=== PATIENT | female | born 1990 | race Two or more races ===

== ENCOUNTER 2017-04-06 20:32 | Emergency (ER) | payer OTHER ==
[~2017-04-06] VITALS: Ht 160 cm; Wt 84.0 kg
[2017-04-06 20:38] VITALS: Ht 160 cm; Wt 84.0 kg
[2017-04-06] MEDS ORDERED: IBUPROFEN 600 MG TAB PO ONE (21:00)
--- NOTE | 2017-04-06 21:02 | ERD ---
ER Documentation Chief Complaint Date/Time DATE: 04/06/17 TIME: 20:57 Chief Complaint cough and congestion x 1 week HPI This is a 27-year-old female presenting to emergency department with cough and chest congestion 1 week. Patient states cough is productive with yellow sputum. Patient denies fevers or chills at home. Patient states she does have some chest pain while coughing. Patient states she has some nausea at times with severe coughing. No vomiting. No abdominal pain. No dysuria. No sore throat or difficulty swallowing. Patient did not take any medications at home for this. ROS All systems reviewed and are negative except as per history of present illness. Medications Home Meds Active Scripts Guaifenesin/Codeine Phosphate (CHERATUSSIN AC SYRUP) 118 Ml Liquid, 5 ML PO Q4H Y for COUGH, #118 ML Prov:ALEJANDRO RAWLS NP 04/06/17 Allergies Allergies: Coded Allergies: No Known Allergy (Unverified , 04/06/17) PMhx/Soc Medical and Surgical Hx: pt denies Medical Hx, pt denies Surgical Hx History of Surgery: No Anesthesia Reaction: No Hx Neurological Disorder: No Hx Respiratory Disorders: No Hx Cardiac Disorders: No Hx Psychiatric Problems: No Hx Miscellaneous Medical Probl: No Hx Alcohol Use: No Hx Substance Use: No Hx Tobacco Use: No Smoking Status: Never smoker Physical Exam Vitals Physical Exam Const: No acute distress, alert Head: Atraumatic Eyes: Normal Conjunctiva ENT: Normal External Ears, Nose and Mouth. No erythema or exudate posterior pharynx. No peritonsillar abscess. TMs normal bilaterally. Neck: Full range of motion..~ No meningismus. Resp: Clear to auscultation bilaterally. No wheezing, rhonchi or crackles. No stridor or labored breathing. Patient is talking in complete sentences. Cardio: Regular rate and rhythm, no murmurs Abd: Soft, non tender, non distended. Normal bowel sounds Skin: No petechiae or rashes Back: No midline or flank tenderness Ext: No cyanosis, or edema Neur: Awake and alert Psych: Normal Mood and Affect Results 24 hrs Current Medications Medications (Trade) Dose Ordered Sig/Quin Route PRN Reason Start Time Stop Time Status Last Admin Dose Admin Ibuprofen (Motrin) 600 mg ONCE ONCE PO 04/06/17 21:00 04/06/17 21:01 DC 04/06/17 21:17 Procedures/MDM [place] [id number] Radiology Main Line: [phone] DIAGNOSTIC IMAGING REPORT Patient: EUN RICHTER : 1990 Age: 27 Sex: F MR #: [id number] DOS: 04/06/172053 Ordering MD: ALEJANDRO RAWLS NP Location: [facility] Room/Bed: PROCEDURE: XR Chest. CLINICAL INDICATION: Cough TECHNIQUE: AP Portable chest. COMPARISON: No pertinent prior examinations were submitted for comparison. FINDINGS: The cardiomediastinal silhouette is normal. The lungs are clear. The osseous structures are unremarkable. IMPRESSION: No acute findings. MDM: This is a 27-year-old female presenting to emergency department with cough and chest congestion 1 week. Patient is afebrile upon arrival to ED. Vital signs are stable. Patient has productive cough with yellow sputum. Patient states she does have some chest pain while coughing. Chest pain is reproducible with palpation and low suspicion for acute AK and N-STEMI. Patient given ibuprofen 600 mg p.o. Chest x-ray reviewed by radiologist as no acute findings. Low suspicion for pneumonia, pleural effusion, pneumothorax or acute AK. Differential diagnosis includes but not limited to URI, influenza, otitis media , otitis externa, asthma exacerbation, croup, bronchitis, bronchiolitis and costochondritis. Patient is appropriate for outpatient management and will be given prescription for Cheratussin AC syrup. Instructed patient to follow-up with primary care provider in the next 2-3 days for reassessment and additional management. Return to ED for any high fever, chest pain, difficulty breathing, shortness breath, wheezing, vomiting, diarrhea, abdominal pain or any new or worsening symptoms. Patient verbalizes understanding. All questions answered at discharge. Departure Diagnosis: Primary Impression: URI (upper respiratory infection) URI type: unspecified viral URI Qualified Code: J06.9 - Viral upper respiratory tract infection Condition: Stable ALEJANDRO RAWLS NP Apr 06, 2017 21:02
--- NOTE | 2017-04-06 22:09 | RADRPT ---
PROCEDURE: XR Chest. CLINICAL INDICATION: Cough TECHNIQUE: AP Portable chest. COMPARISON: No pertinent prior examinations were submitted for comparison. FINDINGS: The cardiomediastinal silhouette is normal. The lungs are clear. The osseous structures are unrema rkable. IMPRESSION: No acute findings. RPTAT: HIKT .Cale Gaspar MD, MD Date Time Electronically viewed and signed by .Cale Gaspar MD, on 04/06/2017 22:09 .T/
[2017-04-06] MEDS ORDERED: GUAI118L22 PO (23:03)
== END 2017-04-06 23:15 | disposition home or self-care (01) ==
LOC: FTE 20:32
DX: J06.9 Acute upper respiratory infection, unspecified (principal)
CPT/HCPCS: 71010; Z7502; Z7610

== ENCOUNTER 2017-07-11 11:22 | Emergency (ER) | payer OTHER ==
[~2017-07-11] VITALS: Wt 84.0 kg
[~2017-07-11 11:22] MED LIST: GUAI118L22 PO
[2017-07-11] MEDS ORDERED: PRED20TA PO (13:20)
[2017-07-11] MEDS ORDERED: predniSONE 20 MG TAB PO ONE (13:30)
--- NOTE | 2017-07-11 17:12 | ERD ---
ER Documentation Chief Complaint Chief Complaint R LEG NUMBNESS X 8 DAYS HPI Patient is a 27-year-old female with a history of multiple sclerosis who presents to the ED with right leg numbness and tingling 7 days. Patient states that her job requires her to stand on her feet all day over 8 hours. Pain came on suddenly Friday when she came home from work. She states that it starts at her hips and radiates down to her right toes. She is able to walk. She has mild weakness. Denies bowel or bladder incontinence. Denies trauma or falls. States that she had a neurologist last year and was getting injections weekly however she had a change in insurance and has not seen a neurologist this year. Has an appointment with the neurologist in August. She has not taken any medication for her symptoms. Denies abdominal pain, nausea, vomiting or diarrhea. Denies headache or dizziness. Denies blurry vision or diplopia. No other complaints. ROS All systems reviewed and are negative except as per history of present illness. Medications Home Meds Active Scripts Prednisone* (Prednisone*) 20 Mg Tab, 60 MG PO DAILY for 4 Days, TAB Prov:JACQUI HOWELL PA-C 07/11/17 Guaifenesin/Codeine Phosphate (CHERATUSSIN AC SYRUP) 118 Ml Liquid, 5 ML PO Q4H Y for COUGH, #118 ML Prov:ALEJANDRO RAWLS NP 04/06/17 Allergies Allergies: Coded Allergies: No Known Allergy (Unverified , 04/06/17) PMhx/Soc History of Surgery: No Anesthesia Reaction: No Hx Neurological Disorder: No Hx Respiratory Disorders: No Hx Cardiac Disorders: No Hx Psychiatric Problems: No Hx Miscellaneous Medical Probl: No Hx Alcohol Use: No Hx Substance Use: No Hx Tobacco Use: No Physical Exam Vitals Vital Signs Date Time Temp Pulse Resp B/P Pulse Ox O2 Delivery O2 Flow Rate FiO2 07/11/17 13:35 98 Room Air 07/11/17 11:25 98.0 107 18 142/87 99 Physical Exam GENERAL: Well-developed, well-nourished female. Appears in no acute distress. HEAD: Normocephalic, atraumatic. EYES: Pupils are equally reactive bilaterally. EOMs grossly intact. No conjunctival erythema. ENT: Moist mucous membranes. No uvula deviation. No kissing tonsils. No exudates. NECK: Supple. No lymphadenopathy or thyromegaly. No meningismus. negative kernig. negative brudinski. LUNG: Clear to auscultation bilaterally. No rhonchi, wheezing, rales or coarse breath sounds. HEART: Regular rate and rhythm. No murmurs, rubs or gallops. Extremities: Equal pulses bilaterally. No peripheral clubbing, cyanosis or edema. No unilateral leg swelling. NEUROLOGIC: Alert and oriented. Moving all four extremities. diminished strength on right > left Normal speech. Steady gait. good pulses. SKIN: Normal color. Warm and dry. No rashes or lesions. Capillary refill < 2 seconds Results 24 hrs Current Medications Medications (Trade) Dose Ordered Sig/Quin Route PRN Reason Start Time Stop Time Status Last Admin Dose Admin Prednisone (Prednisone) 60 mg ONCE ONCE PO 07/11/17 13:30 07/11/17 13:31 DC 07/11/17 13:27 Procedures/MDM ER COURSE: I kept the patient and/or family informed of laboratory and diagnostic imaging results throughout the emergency room course. MEDICAL DECISION MAKING: This is a 27-year-old female who presents with left leg weakness, numbness and pain x 8 days. Vital signs were reviewed. Patient is afebrile. Patient is not hypoxic. Patient has a history of MS and likely exacerbation of this since she has not been seen by neurologist or had treatment. Patient does not have bowel or bladder incontinence, therefore low suspicion for saddle anesthesia. Patient denies perianal or perineal anesthesia. No foot drop. Was given 60 mg of prednisone here in the ED, tolerated well with no adverse reaction. Low suspicion for cauda equine syndrome, spinal epidural hematoma, spinal epidural abscess, osteomyelitis, fracture, aortic dissection, AAA, pyelonephritis, nephrolithiasis, septic stone, obstructed stone.Patient is able to ambulate without assistance. Low suspicion for dislocation, fracture, septic joint, compartment syndrome, osteomyelitis, cellulitis, avascular necrosis, neurological injury, vascular injury, tendon laceration. Low suspicion for cauda equine syndrome, spinal epidural hematoma, spinal epidural abscess, osteomyelitis, fracture, aortic dissection, AAA, pyelonephritis, nephrolithiasis , septic stone, obstructed stone. Consulted with my supervising physician Dr. Curiel who agrees with my medical decision making and discharge plans. DISCHARGE: At this time, patient is stable for discharge and outpatient management with no new complaints during the ER course. Patient was sent home with prednisone and to follow-up with neurologist. Patient will be discharged home with instructions to recheck for new or worsening symptoms such as fever, nausea, weakness, LOC and to follow up with primary care in the next 1-2 days. Patient was advised to return to the ER for any new or worsening symptoms. Plan was discussed and patient and/or family understands and agrees. Home instructions were given. Departure Diagnosis: Primary Impression: Leg pain Laterality: right Qualified Code: M79.604 - Pain of right lower extremity Condition: Stable Patient Instructions: Multiple Sclerosis Referrals: CATHIE BAEZ MD, JAMES MILLER, CHAD M. MD MRELASHVILI, DAVIT Additional Instructions: CALL YOUR NEUROLOGIST TO SET AN EARLIER APPOINTMENT Call your primary care doctor TOMORROW for an appointment during the next 1-2 days.See the doctor sooner or return here if your condition worsens before your appointment time. JACQUI HOWELL PA-C Jul 11, 2017 17:12
== END 2017-07-11 13:40 | disposition home or self-care (01) ==
LOC: FTE 11:22
DX: M79.604 Pain in right leg (principal)
CPT/HCPCS: J7512; Z7502; 99283

== ENCOUNTER 2018-07-12 10:48 | Emergency (ER) | END 2018-07-12 13:36 | disposition home or self-care (01) ==

== ENCOUNTER 2019-01-30 11:39 | Inpatient (IN) | payer OTHER ==
[~2019-01-30] VITALS: Ht 160 cm; Wt 90.3 kg
[~2019-01-30 11:39] MED LIST changes: +MAG-19 PO; +ONDA4TAB14 PO; +PRED20TA PO
--- NOTE | 2019-01-30 13:58 | ERD ---
ER Documentation Chief Complaint Chief Complaint NUMBNESS AND BURNING TO LOWER LEGS X 6 DAYS SEEN BY PRIMARY HPI Patient is a 28-year-old female with past medical history of MS, presents the ER for concerns of bilateral lower extremity numbness. Patient states her symptoms are gotten worse over the last 6 days. Patient states intermittently for the last 4 months she has had symptoms. Patient states she did go see her primary c are physician and she was given gabapentin. Patient states despite taking this medication her symptoms are worsening. Patient states she is having difficulty ambulating and feels as if she is going to fall secondary to the numbness. Patient denies any headache, nausea, vomiting, neck pain. Patient does have lower back pain. Patient denies any saddle seizure, urine incontinence or stool incontinence. Patient is currently on her menstrual period. Patient states she has not followed up with a neurologist for the last 6 months due to insurance changes. ROS All systems reviewed and are negative except as per history of present illness. Medications Home Meds Discontinued Scripts Ondansetron (Ondansetron Odt) 4 Mg Tab.rapdis, 4 MG PO Q6H PRN for NAUSEA AND/OR VOMITING, #20 TAB Prov:HUGO IGNACIO PA-C 07/12/18 Magaldrate/Simethicone* (Mylanta*) 355 Ml Susp, 30 ML PO QID PRN for GASTROINTESTINAL UPSET, #1 BOTTLE Prov:HUGO IGNACIO PA-C 07/12/18 Prednisone* (Prednisone*) 20 Mg Tab, 60 MG PO DAILY for 4 Days, TAB Prov:JACQUI HOWELL PA-C 07/11/17 Guaifenesin/Codeine Phosphate (CHERATUSSIN AC SYRUP) 118 Ml Liquid, 5 ML PO Q4H PRN for COUGH, #118 ML Prov:ALEJANDRO RAWLS NP 04/06/17 Allergies Allergies: Coded Allergies: No Known Allergy (Unverified , 01/30/19) PMhx/Soc Medical and Surgical Hx: pt denies Medical Hx, pt denies Surgical Hx History of Surgery: No Anesthesia Reaction: No Hx Neurological Disorder: No Hx Respiratory Disorders: No Hx Cardiac Disorders: No Hx Psychiatric Problems: No Hx Miscellaneous Medical Probl: No Hx Alcohol Use: No Hx Substance Use: No Hx Tobacco Use: No FmHx Family History: No diabetes Physical Exam Vitals Vital Signs Date Temp Pulse Resp B/P (MAP) Pulse Ox O2 O2 Flow FiO2 Time Delivery Rate 01/30/19 98.1 89 18 134/82 99 11:42 (99) Physical Exam GENERAL: Well-developed, well-nourished female. Appears in no acute distress. Speaking in full sentences. HEAD: Normocephalic, atraumatic. EYES: Pupils are equally reactive bilaterally. EOMs grossly intact. No conjunctival erythema. NECK: Supple. No meningismus. Normal range of motion of the neck. No cervical midline tenderness. LUNG: Clear to auscultation bilaterally. No rhonchi, wheezing, rales or coarse breath sounds. HEART: Regular rate and rhythm. No murmurs, rubs or gallops. BACK: No midline tenderness. Tender to palpation of bilateral lumbar paraspinal muscles. EXTREMITIES: Equal pulses bilaterally. No peripheral clubbing, cyanosis or edema. No unilateral leg swelling. NEUROLOGIC: Alert and oriented. 5 out of 5 strength noted in bilateral upper extremities. 3/4 out of 5 strength noted in bilateral lower extremities. Normal speech. Slow, shuffled gait, appears somewhat unsteady. Decreased sensation to bilateral lower extremities. Symmetric smile. No unilateral weakness. No facial asymmetry. SKIN: Normal color. Warm and dry. No rashes or lesions. Result Diagram: 01/30/19 1308 01/30/19 1308 Results 24 hrs Laboratory Tests Test 01/30/19 13:08 01/30/19 13:12 White Blood Count 8.7 10^3/ul Red Blood Count 4.99 10^6/ul Hemoglobin 14.1 g/dl Hematocrit 44.3 % Mean Corpuscular Volume 88.8 fl Mean Corpuscular Hemoglobin 28.3 pg Mean Corpuscular Hemoglobin Concent 31.8 g/dl Red Cell Distribution Width 12.8 % Platelet Count 269 10^3/UL Mean Platelet Volume 10.5 fl Immature Granulocytes % 0.300 % Neutrophils % 61.4 % Lymphocytes % 30.0 % Monocytes % 6.4 % Eosinophils % 1.4 % Basophils % 0.5 % Nucleated Red Blood Cells % 0.0 /100WBC Immature Granulocytes # 0.030 10^3/ul Neutrophils # 5.3 10^3/ul Lymphocytes # 2.6 10^3/ul Monocytes # 0.6 10^3/ul Eosinophils # 0.1 10^3/ul Basophils # 0.0 10^3/ul Nucleated Red Blood Cells # 0.0 10^3/ul Urine Color YELLOW Urine Clarity SLIGHTLY CLOUDY Urine pH 5.0 Urine Specific [place] 1.010 Urine Ketones NEGATIVE mg/dL Urine Nitrite NEGATIVE mg/dL Urine Bilirubin NEGATIVE mg/dL Urine Urobilinogen NEGATIVE mg/dL Urine Leukocyte Esterase NEGATIVE Olvin/ul Urine Microscopic RBC 32 /HPF Urine Microscopic WBC 4 /HPF Urine Squamous Epithelial Cells FEW /HPF Urine Bacteria FEW /HPF Urine Hemoglobin 3+ mg/dL Urine Glucose NEGATIVE mg/dL Urine Total Protein NEGATIVE mg/dl Sodium Level 141 mmol/L Potassium Level 3.9 mmol/L Chloride Level 104 mmol/L Carbon Dioxide Level 26 mmol/L Anion Gap 11 Blood Urea Nitrogen 9 mg/dl Creatinine 0.54 mg/dl Est Glomerular Filtrat Rate mL/min > 60 mL/min Glucose Level 86 mg/dl Calcium Level 9.5 mg/dl Total Bilirubin 0.5 mg/dl Direct Bilirubin 0.00 mg/dl Indirect Bilirubin 0.5 mg/dl Aspartate Amino Transf (AST/SGOT) 29 IU/L Alanine Aminotransferase (ALT/SGPT) 41 IU/L Alkaline Phosphatase 81 IU/L Total Protein 8.8 g/dl Albumin 4.8 g/dl Globulin 4.00 g/dl Albumin/Globulin Ratio 1.20 POC Beta HCG, Qualitative NEGATIVE Procedures/MDM MEDICAL DECISION MAKING: Patient is a 28-year-old female with past medical history of MS, presents the ER for concerns of bilateral lower extremity numbness. Patient states her symptoms are worsening and she feels as if she is going to fall. Patient has not seen a neurologist for the last 6 months. Vital signs were reviewed. Patient is afebrile. Patient was not hypoxic. Exam findings did reveal weakness in bilateral lower extremities. Patient had slow shuffled gait due to feeling as if she was going to fall. Case discussed with supervising physician Dr. Burns who advised me to order basic labs. CBC showed no evidence of systemic infection or anemia. CMP showed no severe electrolyte abnormalities, acidosis, alkalosis, renal injury or liver failure. Urine test was negative. UA showed 3+ hemoglobin however patient is currently on her menstrual period. Patient symptoms are most consistent with MS flareup. Patient will be admitted for further work-up and management. Dr. Burns will assist with admission to the hospitalist team. Patient was stable throughout the ED course. Departure Diagnosis: Primary Impression: Multiple sclerosis exacerbation Additional Impression: Lower extremity numbness Condition: PAMELA Parks PA-C January 30, 2019 13:58
[2019-01-30 16:16] VITALS: Ht 160 cm; Wt 90.3 kg
[2019-01-30] MEDS: METHYLPREDNISOLONE 125 MG INJ IV SCH (17:27)
[2019-01-30 20:00] VITALS: BP 107/59; PULSE 84; RESP 18
[2019-01-30] MEDS ORDERED: traMADol 50 MG TAB PO PRN (21:00)
--- NOTE | 2019-01-30 21:43 | QN ---
Documentation Comment [id number] SILAS RODRIGUEZ MD January 30, 2019 21:43
[2019-01-31 02:00] VITALS: BP 110/59; PULSE 98; RESP 17
[2019-01-31] MEDS: PANTOPRAZOLE (EC) 40 MG TAB PO SCH (05:34)
[2019-01-31 08:37] VITALS: BP 110/62; PULSE 101; RESP 18
--- NOTE | 2019-01-31 09:03 | PN ---
Date/Time of Note Date/Time of Note DATE: 01/31/19 TIME: 09:01 Assessment/Plan VTE Prophylaxis Risk score (from [facility] [place])>0 risk: 2 SCD applied (from [facility] [place]): No SCD contraindicated: other Pharmacological prophylaxis: NA/contraindicated Pharm contraindication: anticoag not tolerated Lines/Catheters IV [facility] Saline Lock Urinary Cath still in place: No Assessment/Plan Hospital Course 1. Multiple sclerosis exacerbation. CT scan brain showed: No acute intracranial pathology. 2.Lower extremity numbness 3. Obesity 4. Anxiety Assessment/Plan -pain control -DVT proph. SCD in bed -fall precaution -GI proph. Protonix _neurology consult called -solumedrol Result Diagram: 01/30/19 1308 01/30/19 1308 Results 24hrs Laboratory Tests Test 01/30/19 13:08 01/30/19 13:12 White Blood Count 8.7 Red Blood Count 4.99 Hemoglobin 14.1 Hematocrit 44.3 Mean Corpuscular Volume 88.8 Mean Corpuscular Hemoglobin 28.3 L Mean Corpuscular Hemoglobin Concent 31.8 L Red Cell Distribution Width 12.8 Platelet Count 269 Mean Platelet Volume 10.5 H Immature Granulocytes % 0.300 Neutrophils % 61.4 Lymphocytes % 30.0 Monocytes % 6.4 Eosinophils % 1.4 Basophils % 0.5 Nucleated Red Blood Cells % 0.0 Immature Granulocytes # 0.030 Neutrophils # 5.3 Lymphocytes # 2.6 Monocytes # 0.6 Eosinophils # 0.1 Basophils # 0.0 Nucleated Red Blood Cells # 0.0 Urine Color YELLOW Urine Clarity SLIGHTLY CLOUDY A Urine pH 5.0 Urine Specific [place] 1.010 Urine Ketones NEGATIVE Urine Nitrite NEGATIVE Urine Bilirubin NEGATIVE Urine Urobilinogen NEGATIVE Urine Leukocyte Esterase NEGATIVE Urine Microscopic RBC 32 H Urine Microscopic WBC 4 Urine Squamous Epithelial Cells FEW Urine Bacteria FEW A Urine Hemoglobin 3+ H Urine Glucose NEGATIVE Urine Total Protein NEGATIVE Sodium Level 141 Potassium Level 3.9 Chloride Level 104 Carbon Dioxide Level 26 Anion Gap 11 Blood Urea Nitrogen 9 Creatinine 0.54 Est Glomerular Filtrat Rate mL/min > 60 Glucose Level 86 Calcium Level 9.5 Total Bilirubin 0.5 Direct Bilirubin 0.00 Indirect Bilirubin 0.5 Aspartate Amino Transf (AST/SGOT) 29 Alanine Aminotransferase (ALT/SGPT) 41 Alkaline Phosphatase 81 Total Protein 8.8 H Albumin 4.8 Globulin 4.00 H Albumin/Globulin Ratio 1.20 POC Beta HCG, Qualitative NEGATIVE Subjective 24 Hr Interval Summary Musculoskeletal: back pain, restricted range of motion Neurologic: other (numbness feet) Exam/Review of Systems Exam Vitals Vital Signs Date Temp Pulse Resp B/P (MAP) Pulse Ox O2 O2 Flow FiO2 Time Delivery Rate 01/31/19 98.3 101 18 110/62 93 08:37 (78) 01/30/19 Room Air 15:11 Intake and Output 01/30/19 01/30/19 01/31/19 1515:00 23:00 07:00 IntakeIntake Total 250 ml BalanceBalance 250 ml Constitutional: alert, oriented Psych: anxiety Head: normocephalic Eyes: nl conjunctiva Neck: supple Respiratory: clear to auscultation Cardiovascular: regular rate and rhythm Gastrointestinal: soft Musculoskeletal: joint tenderness (T12-S2), muscle weakness (lower extremities, left arm is weaker), swelling; No nl extremities to inspection, No nl gait and stance, No muscle tone, No range of motion, No spine non-tender, No other Extremities: edema, tenderness; No normal pulses, No calf tenderness, No cyanosis, No clubbing, No pitting pedal edema, No palpable cord, No other Results Results 24hrs Laboratory Tests Test 01/30/19 13:08 01/30/19 13:12 White Blood Count 8.7 Red Blood Count 4.99 Hemoglobin 14.1 Hematocrit 44.3 Mean Corpuscular Volume 88.8 Mean Corpuscular Hemoglobin 28.3 L Mean Corpuscular Hemoglobin Concent 31.8 L Red Cell Distribution Width 12.8 Platelet Count 269 Mean Platelet Volume 10.5 H Immature Granulocytes % 0.300 Neutrophils % 61.4 Lymphocytes % 30.0 Monocytes % 6.4 Eosinophils % 1.4 Basophils % 0.5 Nucleated Red Blood Cells % 0.0 Immature Granulocytes # 0.030 Neutrophils # 5.3 Lymphocytes # 2.6 Monocytes # 0.6 Eosinophils # 0.1 Basophils # 0.0 Nucleated Red Blood Cells # 0.0 Urine Color YELLOW Urine Clarity SLIGHTLY CLOUDY A Urine pH 5.0 Urine Specific [place] 1.010 Urine Ketones NEGATIVE Urine Nitrite NEGATIVE Urine Bilirubin NEGATIVE Urine Urobilinogen NEGATIVE Urine Leukocyte Esterase NEGATIVE Urine Microscopic RBC 32 H Urine Microscopic WBC 4 Urine Squamous Epithelial Cells FEW Urine Bacteria FEW A Urine Hemoglobin 3+ H Urine Glucose NEGATIVE Urine Total Protein NEGATIVE Sodium Level 141 Potassium Level 3.9 Chloride Level 104 Carbon Dioxide Level 26 Anion Gap 11 Blood Urea Nitrogen 9 Creatinine 0.54 Est Glomerular Filtrat Rate mL/min > 60 Glucose Level 86 Calcium Level 9.5 Total Bilirubin 0.5 Direct Bilirubin 0.00 Indirect Bilirubin 0.5 Aspartate Amino Transf (AST/SGOT) 29 Alanine Aminotransferase (ALT/SGPT) 41 Alkaline Phosphatase 81 Total Protein 8.8 H Albumin 4.8 Globulin 4.00 H Albumin/Globulin Ratio 1.20 POC Beta HCG, Qualitative NEGATIVE Medications Medication Current Medications Methylprednisolone Sodium Succinate (Solu-Medrol) 60 mg DAILY IV Last administered on 01/30/19at 17:27; Admin Dose 60 MG; Start 01/30/19 at 17:00 Pantoprazole (Protonix Tab) 40 mg DAILY@06 PO Last administered on 01/31/19at 05:34; Admin Dose 40 MG; Start 01/31/19 at 06:00 Tramadol HCl (Ultram) 50 mg TID PRN PO PAIN Last administered on 01/30/19at 21:02; Admin Dose 50 MG; Start 01/30/19 at 21:00 CLAUDE DIAMOND January 31, 2019 09:03
[2019-01-31] MEDS: METHYLPREDNISOLONE 125 MG INJ IV SCH (09:06)
[2019-01-31] MEDS: ALPRAZOLAM 0.25 MG TAB PO SCH ×2 (09:59→21:07)
[2019-01-31] MEDS: HYDROCODONE/APAP (5/325) TAB PO PRN ×2 (09:59→20:37)
[2019-01-31] MEDS ORDERED: morphine 2 MG INJ IV PRN (10:00)
--- NOTE | 2019-01-31 12:41 | CONS ---
Assessment/Plan Assessment/Plan Hospital Course 28 yo F with known hx of MS who presents for evaluation of BLE numbness and weakness... for which neurology is consulted. The clinical picture is most concerning for an MS exacerbation. CTH is unrevealing. P: Add MRI brain/C-spine/T-spine c/ c/o contrast to further evaluate for active demyelination Increase solumedrol to 1g IV daily for ~5-7 days, pending clinical improvement Cont other medical management per primary PT as necessary Will follow clinically, to recommend neurologic studies, as necessary Consultation Date/Type/Reason Admit Date/Time January 30, 2019 at 14:09 Type of Consult Neurology Reason for Consultation MS flare Requesting Provider: CLAUDE DIAMOND Date/Time of Note DATE: 01/31/19 TIME: 12:41 Hx of Present Illness 28 yo F with hx of MS who presented to the ED for progressive BLE numbness x 1 week. History was obtained from pt and chart review. The pt states that she was diagnosed with MS 4 years ago. She stated that her neurologist at the time started her on an IM medication that she received 3x/week. She stated that she received her last injection October of last year when her insurance stopped covering it. She also stated that she hasn't seen her neurologist in over 6 months d/t insurance changes. She states that she gets intermittent episodes of numbness/tingling in her extremities or face that last for weeks at a time. This most recent episode started on Friday when she developed numbness in her feet. She went to her PCP who started her on gabapentin, however, the pt states that she has only gotten worse. She now endorses BLE from her feet to her knees, with weakness, which is why she decided to come to the hospital. It is additionally elsewhere noted: HPI Patient is a 28-year-old female with past medical history of MS, presents the ER for concerns of bilateral lower extremity numbness. Patient states her symptoms are gotten worse over the last 6 days. Patient states intermittently for the last 4 months she has had symptoms. Patient states she did go see her primary care physician and she was given gabapentin. Patient states despite taking this medication her symptoms are worsening. Patient states she is having difficulty ambulating and feels as if she is going to fall secondary to the numbness. Patient denies any headache, nausea, vomiting, neck pain. Patient does have lower back pain. Patient denies any saddle seizure, urine incontinence or stool incontinence. Patient is currently on her menstrual period. Patient states she has not followed up with a neurologist for the last 6 months due to insurance changes. negative unless noted otherwise in HPI Exam/Review of Systems Exam Vitals Vital Signs Date Temp Pulse Resp B/P (MAP) Pulse Ox O2 O2 Flow FiO2 Time Delivery Rate 01/31/19 98.3 101 18 110/62 93 08:37 (78) 01/30/19 Room Air 15:11 Intake and Output 01/30/19 01/30/19 01/31/19 1515:00 23:00 07:00 IntakeIntake Total 250 ml BalanceBalance 250 ml Exam PE: Gen Appearance: No Apparent Distress HEENT: Normocephalic Cardiovascular: Regular rate Lungs: Clear bilaterally Abdomen: Soft Extremities: Dry NE: The patient was alert and oriented.. Language was normal. Fund of knowledge was normal. Pupils were equal and reactive to light. There was no afferent pupillary defect. Visual santana were normal. Funduscopic examination was limited. Extra-ocular movements were full. Ptosis was absent. There was no nystagmus. Facial sensation was normal. Face was symmetric with normal strength. Hearing was intact. Palate movements were normal. Neck strength was normal. There was normal tongue bulk and speed of movement. Tone was normal. Muscle bulk was normal. I did not see fasciculations. Arms were strong to confrontation; legs were very weak, symmetrically. Vibration sensation was diminished in her lower extremities, symmetrically. Temperature and pinprick sensation was normal. Rapid alternating movements were normal. There was no dysmetria. There was no intention tremor. Gait was deferred due to bedrest. Arm and leg reflexes were 2+ and symmetric. Diana's sign was absent. Plantar responses were flexor. Results Result Diagram: 01/30/19 1308 01/30/19 1308 Results 24hrs Laboratory Tests Test 01/30/19 13:08 01/30/19 13:12 White Blood Count 8.7 Red Blood Count 4.99 Hemoglobin 14.1 Hematocrit 44.3 Mean Corpuscular Volume 88.8 Mean Corpuscular Hemoglobin 28.3 L Mean Corpuscular Hemoglobin Concent 31.8 L Red Cell Distribution Width 12.8 Platelet Count 269 Mean Platelet Volume 10.5 H Immature Granulocytes % 0.300 Neutrophils % 61.4 Lymphocytes % 30.0 Monocytes % 6.4 Eosinophils % 1.4 Basophils % 0.5 Nucleated Red Blood Cells % 0.0 Immature Granulocytes # 0.030 Neutrophils # 5.3 Lymphocytes # 2.6 Monocytes # 0.6 Eosinophils # 0.1 Basophils # 0.0 Nucleated Red Blood Cells # 0.0 Urine Color YELLOW Urine Clarity SLIGHTLY CLOUDY A Urine pH 5.0 Urine Specific [place] 1.010 Urine Ketones NEGATIVE Urine Nitrite NEGATIVE Urine Bilirubin NEGATIVE Urine Urobilinogen NEGATIVE Urine Leukocyte Esterase NEGATIVE Urine Microscopic RBC 32 H Urine Microscopic WBC 4 Urine Squamous Epithelial Cells FEW Urine Bacteria FEW A Urine Hemoglobin 3+ H Urine Glucose NEGATIVE Urine Total Protein NEGATIVE Sodium Level 141 Potassium Level 3.9 Chloride Level 104 Carbon Dioxide Level 26 Anion Gap 11 Blood Urea Nitrogen 9 Creatinine 0.54 Est Glomerular Filtrat Rate mL/min > 60 Glucose Level 86 Calcium Level 9.5 Total Bilirubin 0.5 Direct Bilirubin 0.00 Indirect Bilirubin 0.5 Aspartate Amino Transf (AST/SGOT) 29 Alanine Aminotransferase (ALT/SGPT) 41 Alkaline Phosphatase 81 Total Protein 8.8 H Albumin 4.8 Globulin 4.00 H Albumin/Globulin Ratio 1.20 POC Beta HCG, Qualitative NEGATIVE Medications Medication Current Medications Methylprednisolone Sodium Succinate (Solu-Medrol) 60 mg DAILY IV Last administered on 01/31/19at 09:06; Admin Dose 60 MG; Start 01/30/19 at 17:00 Pantoprazole (Protonix Tab) 40 mg DAILY@06 PO Last administered on 01/31/19at 05:34; Admin Dose 40 MG; Start 01/31/19 at 06:00 Acetaminophen/ Hydrocodone Bitart (Top[place] (5/325)) 1 tab Q6H PRN PO MODERATE PAIN LEVEL 4-6 Last administered on 01/31/19at 09:59; Admin Dose 1 TAB; Start 01/31/19 at 09:30 Morphine Sulfate (morphine) 1 mg Q4H PRN IV SEVERE PAIN LEVEL 7-10; Start 01/31/19 at 10:00 Alprazolam (Xanax) 0.25 mg BID PO Last administered on 01/31/19at 09:59; Admin Dose 0.25 MG; Start 01/31/19 at 10:00 Past Medical History reviewed Home Meds Discontinued Scripts Ondansetron (Ondansetron Odt) 4 Mg Tab.rapdis, 4 MG PO Q6H PRN for NAUSEA AND/OR VOMITING, #20 TAB Prov:HUGO IGNACIO PA-C 07/12/18 Magaldrate/Simethicone* (Mylanta*) 355 Ml Susp, 30 ML PO QID PRN for GASTROINTESTINAL UPSET, #1 BOTTLE Prov:HUGO IGNACIO PA-C 07/12/18 Prednisone* (Prednisone*) 20 Mg Tab, 60 MG PO DAILY for 4 Days, TAB Prov:JACQUI HOWELL PA-C 07/11/17 Guaifenesin/Codeine Phosphate (CHERATUSSIN AC SYRUP) 118 Ml Liquid, 5 ML PO Q4H PRN for COUGH, #118 ML Prov:ALEJANDRO RAWLS NP 04/06/17 Medications Current Medications Methylprednisolone Sodium Succinate (Solu-Medrol) 60 mg DAILY IV Last administered on 01/31/19at 09:06; Admin Dose 60 MG; Start 01/30/19 at 17:00 Pantoprazole (Protonix Tab) 40 mg DAILY@06 PO Last administered on 01/31/19at 05:34; Admin Dose 40 MG; Start 01/31/19 at 06:00 Acetaminophen/ Hydrocodone Bitart ([place] (5/325)) 1 tab Q6H PRN PO MODERATE PAIN LEVEL 4-6 Last administered on 01/31/19at 09:59; Admin Dose 1 TAB; Start 01/31/19 at 09:30 Morphine Sulfate (morphine) 1 mg Q4H PRN IV SEVERE PAIN LEVEL 7-10; Start 01/31/19 at 10:00 Alprazolam (Xanax) 0.25 mg BID PO Last administered on 01/31/19at 09:59; Admin Dose 0.25 MG; Start 01/31/19 at 10:00 Allergies: Coded Allergies: No Known Allergy (Unverified , 01/30/19) Past Surgical History reviewed Social History reviewed Smoking Status: Never smoker JOEL BRANTLEY NP January 31, 2019 12:41
[2019-01-31 14:00] VITALS: BP 119/67; PULSE 114; RESP 18
[2019-01-31] MEDS: METHYLPRED. NA SUCC 1,000 MG in DEXTROSE 5% 50 ML IVPB SCH (18:04)
[2019-01-31 20:00] VITALS: BP 121/66; PULSE 109; RESP 18
[2019-02-01 02:00] VITALS: BP 108/63; PULSE 104; RESP 18
[2019-02-01] MEDS: PANTOPRAZOLE (EC) 40 MG TAB PO SCH (06:25)
[2019-02-01] MEDS: METHYLPRED. NA SUCC 1,000 MG in DEXTROSE 5% 50 ML IVPB SCH (08:25)
[2019-02-01] MEDS: ALPRAZOLAM 0.25 MG TAB PO SCH ×2 (08:25→22:11)
--- NOTE | 2019-02-01 08:29 | PN ---
Date/Time of Note Date/Time of Note DATE: 02/01/19 TIME: 08:27 Assessment/Plan VTE Prophylaxis Risk score (from Ns)>0 risk: 2 SCD applied (from Ns): Yes Pharmacological prophylaxis: NA/contraindicated Pharm contraindication: other Lines/Catheters IV Catheter Type (from Nrs): Saline Lock Urinary Cath still in place: No Assessment/Plan Hospital Course 1. Multiple sclerosis exacerbation. CT scan brain showed: No acute intracranial pathology. 2.Lower extremity numbness 3. Obesity 4. Anxiety 5. Vit D deficiency 6. low TSH Assessment/Plan -neuro on case _walker for stability -GI proph. protonix -ergocalciferol supple. -pain meds -MRI reviewed with pt -neuro consult seen -US thyroid Result Diagram: 01/30/19 1308 01/30/19 1308 Results 24hrs Laboratory Tests Test 02/01/19 05:28 Vitamin D 1,25-Dihydroxy 18.9 L Thyroid Stimulating Hormone (TSH) 0.172 L Subjective 24 Hr Interval Summary Musculoskeletal: back pain Psychological: anxiety; No no complaints, No nl mood/affect, No confusion, No depression, No suicid al, No other Exam/Review of Systems Exam Vitals Vital Signs Date Temp Pulse Resp B/P (MAP) Pulse Ox O2 O2 Flow FiO2 Time Delivery Rate 02/01/19 98.2 104 18 108/63 96 02:00 (78) 01/30/19 Room Air 15:11 Intake and Output 01/31/19 01/31/19 02/01/19 1515:00 23:00 07:00 IntakeIntake Total 480 ml 290 ml 480 ml BalanceBalance 480 ml 290 ml 480 ml Constitutional: alert, oriented Respiratory: clear to auscultation Cardiovascular: regular rate and rhythm Gastrointestinal: soft Musculoskeletal: muscle weakness Results Results 24hrs Laboratory Tests Test 02/01/19 05:28 Vitamin D 1,25-Dihydroxy 18.9 L Thyroid Stimulating Hormone (TSH) 0.172 L Medications Medication Current Medications Pantoprazole (Protonix Tab) 40 mg DAILY@06 PO Last administered on 02/01/19at 06:25; Admin Dose 40 MG; Start 01/31/19 at 06:00 Acetaminophen/ Hydrocodone Bitart ([place] (5/325)) 1 tab Q6H PRN PO MODERATE PAIN LEVEL 4-6 Last administered on 01/31/19at 20:37; Admin Dose 1 TAB; Start 01/31/19 at 09:30 Morphine Sulfate (morphine) 1 mg Q4H PRN IV SEVERE PAIN LEVEL 7-10; Start 01/31/19 at 10:00 Alprazolam (Xanax) 0.25 mg BID PO Last administered on 02/01/19at 08:25; Admin Dose 0.25 MG; Start 01/31/19 at 10:00 Methylprednisolone Sodium Succinate 1000 mg/Dextrose 50 ml @ 100 mls/hr DAILY IVPB Last administered on 02/01/19at 08:25; Admin Dose 100 MLS/HR; Start 01/31/19 at 14:30; Stop 02/05/19 at 14:29 Ergocalciferol (Drisdol) 50,000 unit Tu@09 PO ; Start 02/02/19 at 09:00; Status CLAUDE MONTES February 01, 2019 08:29
[2019-02-01 08:30] VITALS: BP 97/55; PULSE 94; RESP 18
--- NOTE | 2019-02-01 10:43 | CONS ---
Assessment/Plan Assessment/Plan Hospital Course 28 yo F with known hx of MS who presents for evaluation of BLE numbness and weakness... for which neurology is consulted. The clinical picture is consistent w/ MS exacerbation. MRIs confirm active demyelination. P: Cont solumedrol to 1g IV daily for ~5-7 days, pending clinical improvement PT/OT as necessary Cont other medical management per primary Will follow clinically Consultation Date/Type/Reason Admit Date/Time January 30, 2019 at 14:09 Type of Consult Neurology Reason for Consultation MS flare Requesting Provider: CLAUDE DIAMOND Date/Time of Note DATE: 02/01/19 TIME: 10:42 24 HR Interval Summary Free Text/Dictation Continues acute care. S/p MRI brain/C/T-spine. Pt does not yet note any improvement of sx with solumedrol. Exam Vital Signs Vitals Vital Signs Date Temp Pulse Resp B/P (MAP) Pulse Ox O2 O2 Flow FiO2 Time Delivery Rate 02/01/19 98.2 94 18 97/55 (69) 94 08:30 01/30/19 Room Air 15:11 Intake and Output 01/31/19 01/31/19 02/01/19 1515:00 23:00 07:00 IntakeIntake Total 480 ml 290 ml 480 ml BalanceBalance 480 ml 290 ml 480 ml Exam PE: Gen Appearance: No Apparent Distress HEENT: Normocephalic Cardiovascular: Regular rate Lungs: Clear bilaterally Abdomen: Soft Extremities: Dry NE: The patient was alert and oriented.. Language was normal. Fund of knowledge was normal. Pupils were equal and reactive to light. There was no afferent pupillary defect. Visual santana were normal. Funduscopic examination was limited. Extra-ocular movements were full. Ptosis was absent. There was no nystagmus. Facial sensation was normal. Face was symmetric with normal strength. Hearing was intact. Palate movements were normal. Neck strength was normal. There was normal tongue bulk and speed of movement. Tone was normal. Muscle bulk was normal. I did not see fasciculations. Arms were strong to confrontation; legs were very weak, symmetrically. Vibration sensation was diminished in her lower extremities, symmetrically. Temperature and pinprick sensation was normal. Rapid alternating movements were normal. There was no dysmetria. There was no intention tremor. Gait was deferred due to bedrest. Arm and leg reflexes were 2+ and symmetric. Diana's sign was absent. Plantar responses were flexor. JOEL BRANTLEY NP February 01, 2019 10:42 RUSS FREDERICK February 02, 2019 07:43
[2019-02-01 14:36] VITALS: BP_SYST 122; BP_SYST 97; BP_DIAS 55; BP_DIAS 61; PULSE 92; PULSE 94; RESP 18; RESP 19
[2019-02-01 20:00] VITALS: BP 112/55; PULSE 98; RESP 18
[2019-02-02 02:00] VITALS: BP 102/57; PULSE 85; RESP 18
[2019-02-02] MEDS: PANTOPRAZOLE (EC) 40 MG TAB PO SCH (05:41)
[2019-02-02 08:01] VITALS: BP 96/52; PULSE 87; RESP 17
[2019-02-02] MEDS ORDERED: ERGOCALCIFEROL 50,000 UNIT CAP PO SCH (09:00)
--- NOTE | 2019-02-02 09:42 | HP ---
DATE OF ADMISSION: 01/30/2019 HISTORY OF PRESENT ILLNESS: The patient with a history of multiple sclerosis, has not seen a neurolo gist or taken any medication, who presents with lower extremity weakness and possibly a flareup of th e multiple sclerosis. The patient had a brain CT scan done which shows no acute intracranial patholo gy. MRI brain is more sensitive. The patient is admitted for further management. PAST MEDICAL HISTORY: Multiple sclerosis. ALLERGY HISTORY: NEGATIVE. FAMILY HISTORY: Negative. SOCIAL HISTORY: Negative. MEDICATIONS AT HOME: Listed as: 1. Copaxone, but the patient has not taken this. 2. Tramadol. REVIEW OF SYSTEMS: HEENT: Unremarkable. RESPIRATORY: Unremarkable. CARDIOVASCULAR: Unremarkable. ABDOMEN: Unremarkable. EXTREMITIES: Patient has no swelling. CENTRAL NERVOUS SYSTEM: Complaining of weakness of the lower extremity per patient and generalized w eakness. PHYSICAL EXAMINATION: GENERAL: Obese female, awake, alert. VITAL SIGNS: Stable. HEAD: Atraumatic, normocephalic. Pupils equal and reactive to light. NECK: Supple. No JVD. LUNGS: Clear. CARDIOVASCULAR: S1 and S2 are normal. ABDOMEN: Soft, nontender. Bowel sounds present. No palpable mass. EXTREMITIES: No cyanosis, clubbing or edema. CENTRAL NERVOUS SYSTEM: The patient is awake and alert with weakness on both upper and lower extremi ties ____ noted. The patient is able to move both upper and lower extremities. LABORATORY DATA: As mentioned above. IMPRESSION: Multiple sclerosis history with weakness ____. PLAN: To continue PPI, Solu-Medrol, pain medication. Neurology consultation will be considered as w ell as MRI of the brain. Dictated By: SILAS BRADLEY/NTS Conf#: [id number] DID#: [id number]
[2019-02-02] MEDS: METHYLPRED. NA SUCC 1,000 MG in DEXTROSE 5% 50 ML IVPB SCH (10:16)
[2019-02-02] MEDS: ALPRAZOLAM 0.25 MG TAB PO SCH ×2 (10:16→20:33)
[2019-02-02 14:00] VITALS: BP 115/63; PULSE 90; RESP 18
--- NOTE | 2019-02-02 14:00 | CONS ---
Assessment/Plan Assessment/Plan Hospital Course 28 yo F with known hx of MS who presents for evaluation of BLE numbness and weakness... for which neurology is consulted. The clinical picture is consistent w/ MS exacerbation. MRIs confirm active demyelination. P: Cont solumedrol to 1g IV daily for ~5-7 days, pending clinical improvement PT/OT as necessary Cont other medical management per primary Will follow clinically Consultation Date/Type/Reason Admit Date/Time January 30, 2019 at 14:09 Type of Consult Neurology Reason for Consultation MS flare Requesting Provider: CLAUDE DIAMOND Date/Time of Note DATE: 02/02/19 TIME: 14:00 24 HR Interval Summary Free Text/Dictation Continues acute care. Pt notes some mild improvement of her strength today. Exam Vital Signs Vitals Vital Signs Date Temp Pulse Resp B/P (MAP) Pulse Ox O2 O2 Flow FiO2 Time Delivery Rate 02/02/19 98.5 87 17 96/52 (67) 97 08:01 01/30/19 Room Air 15:11 Intake and Output 02/01/19 02/01/19 02/02/19 1515:00 23:00 07:00 IntakeIntake Total 530 ml 240 ml BalanceBalance 530 ml 240 ml Exam PE: Gen Appearance: No Apparent Distress HEENT: Normocephalic Cardiovascular: Regular rate Lungs: Clear bilaterally Abdomen: Soft Extremities: Dry NE: The patient was alert and oriented.. Language was normal. Fund of knowledge was normal. Pupils were equal and reactive to light. There was no afferent pupillary defect. Visual santana were normal. Funduscopic examination was limited. Extra-ocular movements were full. Ptosis was absent. There was no nystagmus. Facial sensation was normal. Face was symmetric with normal strength. Hearing was intact. Palate movements were normal. Neck strength was normal. There was normal tongue bulk and speed of movement. Tone was normal. Muscle bulk was normal. I did not see fasciculations. Arms were strong to confrontation; legs were very weak, symmetrically. Vibration sensation was diminished in her lower extremities, symmetrically. Temperature and pinprick sensation was normal. Rapid alternating movements were normal. There was no dysmetria. There was no intention tremor. Gait was deferred due to bedrest. Arm and leg reflexes were 2+ and symmetric. Diana's sign was absent. Plantar responses were flexor. FERCHO,JOEL ABSEILING INSTRUCTOR February 02, 2019 14:00
--- NOTE | 2019-02-02 17:39 | PN ---
Date/Time of Note Date/Time of Note DATE: 02/02/19 TIME: 17:34 Assessment/Plan VTE Prophylaxis Risk score (from Ns)>0 risk: 2 SCD applied (from Ns): Yes Pharmacological prophylaxis: NA/contraindicated Pharm contraindication: low risk/ambulating Lines/Catheters IV Catheter Type (from Nrs): Saline Lock Urinary Cath still in place: No Assessment/Plan Assessment/Plan 1. Multiple sclerosis exacerbation. CT scan brain showed: No acute intracranial pathology. 2.Lower extremity numbness with weakness 3. Obesity 4. Anxiety 5. Vit D deficiency 6. low TSH 7 Leukocytosis likey due to steroids Assessment/Plan -neuro on case - sp solumederol day #3 _walker for stability -GI proph. protonix -ergocalciferol supple - ISS. -pain meds -MRI reviewed with pt returned case inspector to arrange for neuro as OPD Result Diagram: 02/02/19 0537 02/02/19 0537 Results 24hrs Laboratory Tests Test 02/02/19 05:37 White Blood Count 23.0 #H Red Blood Count 4.64 Hemoglobin 13.5 Hematocrit 40.8 Mean Corpuscular Volume 87.9 Mean Corpuscular Hemoglobin 29.1 Mean Corpuscular Hemoglobin Concent 33.1 Red Cell Distribution Width 13.2 Platelet Count 285 Mean Platelet Volume 11.3 H Immature Granulocytes % 3.700 H Neutrophils % 84.2 H Lymphocytes % 7.4 L Monocytes % 4.5 Eosinophils % 0.0 Basophils % 0.2 Nucleated Red Blood Cells % 0.0 Immature Granulocytes # 0.840 H Neutrophils # 19.3 H Lymphocytes # 1.7 Monocytes # 1.0 H Eosinophils # 0.0 Basophils # 0.0 Nucleated Red Blood Cells # 0.0 Sodium Level 140 Potassium Level 4.0 Chloride Level 106 Carbon Dioxide Level 25 Anion Gap 9 Blood Urea Nitrogen 14 Creatinine 0.52 Est Glomerular Filtrat Rate mL/min > 60 Glucose Level 172 Calcium Level 8.8 Subjective 24 Hr Interval Summary Free Text/Dictation SOME TINGLING NUMBNESS IN FEET Exam/Review of Systems Exam Vitals Vital Signs Date Temp Pulse Resp B/P (MAP) Pulse Ox O2 O2 Flow FiO2 Time Delivery Rate 02/02/19 98.1 90 18 115/63 93 Room Air 14:00 (80) Intake and Output 02/01/19 02/01/19 02/02/19 1515:00 23:00 07:00 IntakeIntake Total 530 ml 240 ml BalanceBalance 530 ml 240 ml Exam Constitutional: alert, oriented Respiratory: clear to auscultation Cardiovascular: regular rate and rhythm Gastrointestinal: soft Musculoskeletal: muscle weakness tingling numbness in both feet Results Results 24hrs Laboratory Tests Test 02/02/19 05:37 White Blood Count 23.0 #H Red Blood Count 4.64 Hemoglobin 13.5 Hematocrit 40.8 Mean Corpuscular Volume 87.9 Mean Corpuscular Hemoglobin 29.1 Mean Corpuscular Hemoglobin Concent 33.1 Red Cell Distribution Width 13.2 Platelet Count 285 Mean Platelet Volume 11.3 H Immature Granulocytes % 3.700 H Neutrophils % 84.2 H Lymphocytes % 7.4 L Monocytes % 4.5 Eosinophils % 0.0 Basophils % 0.2 Nucleated Red Blood Cells % 0.0 Immature Granulocytes # 0.840 H Neutrophils # 19.3 H Lymphocytes # 1.7 Monocytes # 1.0 H Eosinophils # 0.0 Basophils # 0.0 Nucleated Red Blood Cells # 0.0 Sodium Level 140 Potassium Level 4.0 Chloride Level 106 Carbon Dioxide Level 25 Anion Gap 9 Blood Urea Nitrogen 14 Creatinine 0.52 Est Glomerular Filtrat Rate mL/min > 60 Glucose Level 172 Calcium Level 8.8 Medications Medication Current Medications Pantoprazole (Protonix Tab) 40 mg DAILY@06 PO Last administered on 02/02/19at 05:41; Admin Dose 40 MG; Start 01/31/19 at 06:00 Acetaminophen/ Hydrocodone Bitart ([place] (5/325)) 1 tab Q6H PRN PO MODERATE PAIN LEVEL 4-6 Last administered on 01/31/19at 20:37; Admin Dose 1 TAB; Start 01/31/19 at 09:30 Morphine Sulfate (morphine) 1 mg Q4H PRN IV SEVERE PAIN LEVEL 7-10; Start 01/31/19 at 10:00 Alprazolam (Xanax) 0.25 mg BID PO Last administered on 02/02/19at 10:16; Admin Dose 0.25 MG; Start 01/31/19 at 10:00 Methylprednisolone Sodium Succinate 1000 mg/Dextrose 50 ml @ 100 mls/hr DAILY IVPB Last administered on 02/02/19at 10:16; Admin Dose 100 MLS/HR; Start 01/31/19 at 14:30; Stop 02/05/19 at 14:29 Ergocalciferol (Drisdol) 50,000 unit Tu@09 PO Last administered on 02/02/19at 10:16; Admin Dose 50,000 UNIT; Start 02/02/19 at 09:00 GELY BLAKE MD February 02, 2019 17:39
[2019-02-02] MEDS ORDERED: GLUCOSE GEL 15 GRAM TUBE PO PRN ×2 (18:00)
[2019-02-02] MEDS ORDERED: DEXTROSE 50% 50 ML SYRINGE IV PRN ×2 (18:00)
[2019-02-02] MEDS ORDERED: GLUCAGON 1 MG INJ IM PRN (18:00)
[2019-02-02] MEDS ORDERED: GLUCOSE GEL 15 GRAM TUBE BUCCAL PRN (18:00)
[2019-02-02] MEDS: INSULIN ASPART [NOVOLOG] 3 ML PEN SC SCH ×2 (18:41→20:36)
[2019-02-02 20:00] VITALS: BP 104/59; PULSE 84; RESP 18
[2019-02-02] MEDS: ACCU-CHEK XX SCH (20:36)
[2019-02-03 02:00] VITALS: BP 107/52; PULSE 85; RESP 17
[2019-02-03] MEDS: PANTOPRAZOLE (EC) 40 MG TAB PO SCH (05:14)
[2019-02-03 08:00] VITALS: BP 95/56; PULSE 72; RESP 18
[2019-02-03] MEDS: INSULIN ASPART [NOVOLOG] 3 ML PEN SC SCH ×4 (08:00→20:21)
[2019-02-03] MEDS: METHYLPRED. NA SUCC 1,000 MG in DEXTROSE 5% 50 ML IVPB SCH (08:11)
[2019-02-03] MEDS: ALPRAZOLAM 0.25 MG TAB PO SCH ×2 (08:12→20:19)
--- NOTE | 2019-02-03 10:39 | PN ---
Date/Time of Note Date/Time of Note DATE: 02/03/19 TIME: 10:36 Assessment/Plan VTE Prophylaxis Risk score (from Ns)>0 risk: 2 SCD applied (from Ns): Yes Pharmacological prophylaxis: NA/contraindicated Pharm contraindication: low risk/ambulating Lines/Catheters IV Catheter Type (from [facility]): Saline Lock Urinary Cath still in place: No Assessment/Plan Assessment/Plan 1. Multiple sclerosis exacerbation. CT scan brain showed: No acute intracranial pathology. reviewed on MRI 2.Lower extremity numbness with weakness DUE TO #1 3. Obesity 4. Anxiety 5. Vit D deficiency 6. low TSH 7 Leukocytosis likey due to steroids Assessment/Plan -neuro on case - sp solumederol day #4 , not much clinical improvement - ? spoke to neuro reg alternative agent since no clinical improvement on solumedrol _walker for stability -GI proph. protonix -ergocalciferol supplement - ISS.while on steroids -pain meds Result Diagram: 02/03/19 0454 02/03/19 0454 Results 24hrs Laboratory Tests Test 02/02/19 18:37 02/02/19 20:32 02/03/19 04:54 02/03/19 07:59 Bedside Glucose 187 145 122 White Blood Count 19.0 H Red Blood Count 4.71 Hemoglobin 13.5 Hematocrit 41.0 Mean Corpuscular 87.0 Volume Mean Corpuscular 28.7 L Hemoglobin Mean Corpuscular 32.9 Hemoglobin Concent Red Cell 13.1 Distribution Width Platelet Count 266 Mean Platelet Volume 11.4 H Immature 4.600 H Granulocytes % Neutrophils % 78.0 H Lymphocytes % 13.1 L Monocytes % 4.1 Eosinophils % 0.0 Basophils % 0.2 Nucleated Red Blood 0.2 H Cells % Immature 0.870 H Granulocytes # Neutrophils # 14.8 H Lymphocytes # 2.5 Monocytes # 0.8 Eosinophils # 0.0 Basophils # 0.0 Nucleated Red Blood 0.0 Cells # Sodium Level 139 Potassium Level 4.4 Chloride Level 103 Carbon Dioxide Level 28 Anion Gap 8 Blood Urea Nitrogen 17 Creatinine 0.57 Est Glomerular > 60 Filtrat Rate mL/min Glucose Level 135 Calcium Level 8.7 Phosphorus Level 3.9 Magnesium Level 2.5 Creatine Kinase 22 L Subjective 24 Hr Interval Summary Free Text/Dictation still with numbness in BLE Exam/Review of Systems Exam Vitals Vital Signs Date Temp Pulse Resp B/P (MAP) Pulse Ox O2 O2 Flow FiO2 Time Delivery Rate 02/03/19 98.0 72 18 95/56 (69) 95 08:00 02/02/19 Room Air 14:00 Intake and Output 02/02/19 02/02/19 02/03/19 1515:00 23:00 07:00 IntakeIntake Total 50 ml 800 ml BalanceBalance 50 ml 800 ml Exam onstitutional: alert, oriented Respiratory: clear to auscultation Cardiovascular: regular rate and rhythm Gastrointestinal: soft Musculoskeletal: muscle weakness tingling numbness in both feet Results Results 24hrs Laboratory Tests Test 02/02/19 18:37 02/02/19 20:32 02/03/19 04:54 02/03/19 07:59 Bedside Glucose 187 145 122 White Blood Count 19.0 H Red Blood Count 4.71 Hemoglobin 13.5 Hematocrit 41.0 Mean Corpuscular 87.0 Volume Mean Corpuscular 28.7 L Hemoglobin Mean Corpuscular 32.9 Hemoglobin Concent Red Cell 13.1 Distribution Width Platelet Count 266 Mean Platelet Volume 11.4 H Immature 4.600 H Granulocytes % Neutrophils % 78.0 H Lymphocytes % 13.1 L Monocytes % 4.1 Eosinophils % 0.0 Basophils % 0.2 Nucleated Red Blood 0.2 H Cells % Immature 0.870 H Granulocytes # Neutrophils # 14.8 H Lymphocytes # 2.5 Monocytes # 0.8 Eosinophils # 0.0 Basophils # 0.0 Nucleated Red Blood 0.0 Cells # Sodium Level 139 Potassium Level 4.4 Chloride Level 103 Carbon Dioxide Level 28 Anion Gap 8 Blood Urea Nitrogen 17 Creatinine 0.57 Est Glomerular > 60 Filtrat Rate mL/min Glucose Level 135 Calcium Level 8.7 Phosphorus Level 3.9 Magnesium Level 2.5 Creatine Kinase 22 L Medications Medication Current Medications Pantoprazole (Protonix Tab) 40 mg DAILY@06 PO Last administered on 02/03/19at 05:14; Admin Dose 40 MG; Start 01/31/19 at 06:00 Acetaminophen/ Hydrocodone Bitart ([place] (5/325)) 1 tab Q6H PRN PO MODERATE PAIN LEVEL 4-6 Last administered on 01/31/19at 20:37; Admin Dose 1 TAB; Start 01/31/19 at 09:30 Morphine Sulfate (morphine) 1 mg Q4H PRN IV SEVERE PAIN LEVEL 7-10; Start 01/31/19 at 10:00 Alprazolam (Xanax) 0.25 mg BID PO Last administered on 02/03/19at 08:12; Admin Dose 0.25 MG; Start 01/31/19 at 10:00 Methylprednisolone Sodium Succinate 1000 mg/Dextrose 50 ml @ 100 mls/hr DAILY IVPB Last administered on 02/03/19at 08:11; Admin Dose 100 MLS/HR; Start 9 at 14:30; Stop 02/05/19 at 14:29 Ergocalciferol (Drisdol) 50,000 unit Tu@09 PO Last administered on 02/02/19at 10:16; Admin Dose 50,000 UNIT; Start 02/02/19 at 09:00 Diagnostic Test (Pha) (Accu-Chek) 1 ea 02 XX ; Start 02/03/19 at 02:00 Insulin Aspart (Novolog Insulin Pen) NOVOLOG *MILD* ALGORITHM WITH MEALS BEDTIME SC Last administered on 02/02/19at 18:41; Admin Dose 2 UNIT; Start 02/02/19 at 18:05 Miscellaneous Information 1 ea NOTE XX ; Start 02/02/19 at 18:00 Glucose (Glutose) 15 gm Q15M PRN PO DECREASED GLUCOSE; Start 02/02/19 at 18:00 Glucose (Glutose) 22.5 gm Q15M PRN PO DECREASED GLUCOSE; Start 02/02/19 at 18:00 Dextrose (D50w Syringe) 25 ml Q15M PRN IV DECREASED GLUCOSE; Start 02/02/19 at 18:00 Dextrose (D50w Syringe) 50 ml Q15M PRN IV DECREASED GLUCOSE; Start 02/02/19 at 18:00 Glucagon (Glucagen) 1 mg Q15M PRN IM DECREASED GLUCOSE; Start 02/02/19 at 18:00 Glucose (Glutose) 15 gm Q15M PRN BUCCAL DECREASED GLUCOSE; Start 02/02/19 at 18:00 GELY BLAKE MD February 03, 2019 10:38
--- NOTE | 2019-02-03 13:43 | CONS ---
Assessment/Plan Assessment/Plan Hospital Course 28 yo F with known hx of MS who presents for evaluation of BLE numbness and weakness... for which neurology is consulted. The clinical picture is consistent w/ MS exacerbation. MRIs confirm active demyelination. P: Cont solumedrol to 1g IV daily for ~5-7 days, pending clinical improvement PT/OT as necessary Cont other medical management per primary Will follow clinically Consultation Date/Type/Reason Admit Date/Time January 30, 2019 at 14:09 Type of Consult Neurology Reason for Consultation MS flare Requesting Provider: CLAUDE DIAMOND Date/Time of Note DATE: 02/03/19 TIME: 13:43 24 HR Interval Summary Free Text/Dictation Continues acute care. Pt walked further with PT today. Still endorses weakness. Exam Vital Signs Vitals Vital Signs Date Temp Pulse Resp B/P (MAP) Pulse Ox O2 O2 Flow FiO2 Time Delivery Rate 02/03/19 98.0 72 18 95/56 (69) 95 08:00 02/02/19 Room Air 14:00 Intake and Output 02/02/19 02/02/19 02/03/19 1515:00 23:00 07:00 IntakeIntake Total 50 ml 800 ml BalanceBalance 50 ml 800 ml Exam PE: Gen Appearance: No Apparent Distress HEENT: Normocephalic Cardiovascular: Regular rate Lungs: Clear bilaterally Abdomen: Soft Extremities: Dry NE: The patient was alert and oriented.. Language was normal. Fund of knowledge was normal. Pupils were equal and reactive to light. There was no afferent pupillary defect. Visual santana were normal. Funduscopic examination was limited. Extra-ocular movements were full. Ptosis was absent. There was no nystagmus. Facial sensation was normal. Face was symmetric with normal strength. Hearing was intact. Palate movements were normal. Neck strength was normal. There was normal tongue bulk and speed of movement. Tone was normal. Muscle bulk was normal. I did not see fasciculations. Arms were strong to confrontation; legs were very weak (L>R) Vibration sensation was diminished in her lower extremities, symmetrically. Temperature and pinprick sensation was normal. Rapid alternating movements were normal. There was no dysmetria. There was no intention tremor. Gait was deferred due to bedrest. Arm and leg reflexes were 2+ and symmetric. Diana's sign was absent. Plantar responses were flexor. JOEL BRANTLEY NP February 03, 2019 13:43
[2019-02-03 14:00] VITALS: BP 115/67; PULSE 84; RESP 17
[2019-02-03 20:00] VITALS: BP 118/63; PULSE 67; RESP 18
[2019-02-03] MEDS: ACCU-CHEK XX SCH (23:17)
[2019-02-04 02:00] VITALS: BP 98/50; PULSE 74; RESP 17
[2019-02-04] MEDS: PANTOPRAZOLE (EC) 40 MG TAB PO SCH (06:05)
[2019-02-04 08:00] VITALS: BP 106/61; PULSE 78; RESP 18
[2019-02-04] MEDS: INSULIN ASPART [NOVOLOG] 3 ML PEN SC SCH ×4 (08:00→21:00)
[2019-02-04] MEDS: ALPRAZOLAM 0.25 MG TAB PO SCH ×2 (08:57→21:06)
[2019-02-04] MEDS: METHYLPRED. NA SUCC 1,000 MG in DEXTROSE 5% 50 ML IVPB SCH (08:58)
--- NOTE | 2019-02-04 12:52 | CONS ---
Assessment/Plan Assessment/Plan Hospital Course 28 yo F with known hx of MS who presents for evaluation of BLE numbness and weakness... for which neurology is consulted. The clinical picture is consistent w/ MS exacerbation. MRIs confirm active demyelination. P: Cont solumedrol to 1g IV daily for ~5-7 days, pending clinical improvement PT/OT as necessary Cont other medical management per primary Will follow clinically Consultation Date/Type/Reason Admit Date/Time January 30, 2019 at 14:09 Type of Consult Neurology Reason for Consultation MS flare Requesting Provider: CLAUDE DIAMOND Date/Time of Note DATE: 02/04/19 TIME: 12:52 24 HR Interval Summary Free Text/Dictation Continues acute care. Pt states that she feels much stronger today, and walked further with physical therapy. Exam Vital Signs Vitals Vital Signs Date Temp Pulse Resp B/P (MAP) Pulse Ox O2 O2 Flow FiO2 Time Delivery Rate 02/04/19 98.8 78 18 106/61 96 08:00 (76) 02/03/19 Room Air 14:00 Intake and Output 02/03/19 02/03/19 02/04/19 1515:00 23:00 07:00 IntakeIntake Total 50 ml 800 ml BalanceBalance 50 ml 800 ml Exam PE: Gen Appearance: No Apparent Distress HEENT: Normocephalic Cardiovascular: Regular rate Lungs: Clear bilaterally Abdomen: Soft Extremities: Dry NE: The patient was alert and oriented.. Language was normal. Fund of knowledge was normal. Pupils were equal and reactive to light. There was no afferent pupillary defect. Visual santana were normal. Funduscopic examination was limited. Extra-ocular movements were full. Ptosis was absent. There was no nystagmus. Facial sensation was normal. Face was symmetric with normal strength. Hearing was intact. Palate movements were normal. Neck strength was normal. There was normal tongue bulk and speed of movement. Tone was normal. Muscle bulk was normal. I did not see fasciculations. Arms were strong to confrontation; legs were weak to confrontation (L>R) Vibration sensation was diminished in her lower extremities, symmetrically, though improved. Temperature and pinprick sensation was normal. Rapid alternating movements were normal. There was no dysmetria. There was no intention tremor. Gait was deferred due to bedrest. Arm and leg reflexes were 2+ and symmetric. Diana's sign was absent. Plantar responses were flexor. JOEL BRANTLEY NP February 04, 2019 12:52
[2019-02-04 14:00] VITALS: BP 132/76; PULSE 98; RESP 20
--- NOTE | 2019-02-04 15:17 | PN ---
Date/Time of Note Date/Time of Note DATE: 02/04/19 TIME: 15:13 Assessment/Plan VTE Prophylaxis Risk score (from Nsg)>0 risk: 3 SCD applied (from Ns): Yes Pharmacological prophylaxis: NA/contraindicated Pharm contraindication: low risk/ambulating Lines/Catheters IV Catheter Type (from Nrsg): Saline Lock Urinary Cath still in place: No Assessment/Plan Assessment/Plan 1. Multiple sclerosis exacerbation. CT scan brain showed: No acute intracranial pathology. reviewed on MRI 2.Lower extremity numbness with weakness DUE TO #1 3. Obesity 4. Anxiety 5. Vit D deficiency 6. low TSH 7 Leukocytosis likely due to steroids Assessment/Plan -neuro on case - sp solumederol day #5 , now says that clinically improved , able to walk with pt - ? spoke to neuro want to do solumedrol total 7 day course - case manage to [facility] for home health - Pt will see Dr Guevara as OPD has Auth to see _walker for stability -GI proph. protonix -ergocalciferol supplement - ISS.while on steroids -pain meds Result Diagram: 02/03/19 0454 02/03/19 0454 Results 24hrs Laboratory Tests Test 02/03/19 17:38 02/03/19 20:18 02/04/19 08:58 02/04/19 12:10 Bedside Glucose 129 156 123 195 Subjective 24 Hr Interval Summary Free Text/Dictation pt says that feels much mayra today weakness imprving walked with PT today Exam/Review of Systems Exam Vitals Vital Signs Date Temp Pulse Resp B/P (MAP) Pulse Ox O2 O2 Flow FiO2 Time Delivery Rate 02/04/19 98.8 78 18 106/61 96 08:00 (76) 02/03/19 Room Air 14:00 Intake and Output 02/03/19 02/03/19 02/04/19 1515:00 23:00 07:00 IntakeIntake Total 50 ml 800 ml BalanceBalance 50 ml 800 ml Exam onstitutional: alert, oriented Respiratory: clear to auscultation Cardiovascular: regular rate and rhythm Gastrointestinal: soft Musculoskeletal: muscle weakness tingling numbness in both feet Results Results 24hrs Laboratory Tests Test 02/03/19 17:38 02/03/19 20:18 02/04/19 08:58 02/04/19 12:10 Bedside Glucose 129 156 123 195 Medications Medication Current Medications Pantoprazole (Protonix Tab) 40 mg DAILY@06 PO Last administered on 02/04/19at 06:05; Admin Dose 40 MG; Start 01/31/19 at 06:00 Acetaminophen/ Hydrocodone Bitart ([place] (5/325)) 1 tab Q6H PRN PO MODERATE PAIN LEVEL 4-6 Last administered on 01/31/19at 20:37; Admin Dose 1 TAB; Start 01/31/19 at 09:30 Morphine Sulfate (morphine) 1 mg Q4H PRN IV SEVERE PAIN LEVEL 7-10; Start 01/31/19 at 10:00 Alprazolam (Xanax) 0.25 mg BID PO Last administered on 02/04/19at 08:57; Admin Dose 0.25 MG; Start 01/31/19 at 10:00 Methylprednisolone Sodium Succinate 1000 mg/Dextrose 50 ml @ 100 mls/hr DAILY IVPB Last administered on 02/04/19at 08:58; Admin Dose 100 MLS/HR; Start 01/31/19 at 14:30; Stop 02/05/19 at 14:29 Ergocalciferol (Drisdol) 50,000 unit Tu@09 PO Last administered on 02/02/19at 10:16; Admin Dose 50,000 UNIT; Start 02/02/19 at 09:00 Diagnostic Test (Pha) (Accu-Chek) 1 ea 02 XX ; Start 02/03/19 at 02:00 Insulin Aspart (Novolog Insulin Pen) NOVOLOG *MILD* ALGORITHM WITH MEALS BEDTIME SC Last administered on 02/04/19at 12:31; Admin Dose 2 UNIT; Start 02/02/19 at 18:05 Miscellaneous Information 1 ea NOTE XX ; Start 02/02/19 at 18:00 Glucose (Glutose) 15 gm Q15M PRN PO DECREASED GLUCOSE; Start 02/02/19 at 18:00 Glucose (Glutose) 22.5 gm Q15M PRN PO DECREASED GLUCOSE; Start 02/02/19 at 18:00 Dextrose (D50w Syringe) 25 ml Q15M PRN IV DECREASED GLUCOSE; Start 02/02/19 at 18:00 Dextrose (D50w Syringe) 50 ml Q15M PRN IV DECREASED GLUCOSE; Start 02/02/19 at 18:00 Glucagon (Glucagen) 1 mg Q15M PRN IM DECREASED GLUCOSE; Start 02/02/19 at 18:00 Glucose (Glutose) 15 gm Q15M PRN BUCCAL DECREASED GLUCOSE; Start 02/02/19 at 18:00 GELY BLAKE MD February 04, 2019 15:17
[2019-02-04 20:16] VITALS: BP 116/70; PULSE 98; RESP 17
[2019-02-05 02:00] VITALS: BP 109/66; PULSE 76; RESP 18
[2019-02-05] MEDS: ACCU-CHEK XX SCH (02:00)
[2019-02-05] MEDS: PANTOPRAZOLE (EC) 40 MG TAB PO SCH (06:30)
[2019-02-05 08:00] VITALS: BP 104/61; PULSE 76; RESP 20
[2019-02-05] MEDS: INSULIN ASPART [NOVOLOG] 3 ML PEN SC SCH ×4 (08:00→21:58)
[2019-02-05] MEDS: ALPRAZOLAM 0.25 MG TAB PO SCH ×2 (08:11→21:53)
[2019-02-05] MEDS: METHYLPRED. NA SUCC 1,000 MG in DEXTROSE 5% 50 ML IVPB SCH (08:11)
--- NOTE | 2019-02-05 08:53 | PN ---
Date/Time of Note Date/Time of Note DATE: 02/05/19 TIME: 08:51 Assessment/Plan VTE Prophylaxis Risk score (from Ns)>0 risk: 3 SCD applied (from [facility]): Yes Pharmacological prophylaxis: NA/contraindicated Pharm contraindication: low risk/ambulating Lines/Catheters IV [facility]from [facility] Saline Lock Urinary Cath still in place: No Assessment/Plan Hospital Course 1. Multiple sclerosis exacerbation. CT scan brain showed: No acute intracranial pathology. 2.Lower extremity numbness 3. Obesity 4. Anxiety 5. Vit D deficiency 6. low TSH 7/ Leucocytosis. Assessment/Plan -neuro on case - s/p solumedrol day #6 , now says that clinically improved , able to walk with pt - neuro want to do solumedrol total 7 day course - case manage to arrange for home health PT, spoke ready - Pt will see Dr Guevara as OPD has Auth to see -walker for stability -GI proph. protonix -ergocalciferol supplement weekly -dc planning Result Diagram: 02/05/19 0543 02/05/19 0544 Results 24hrs Laboratory Tests Test 02/04/19 08:58 02/04/19 12:10 02/04/19 17:10 02/04/19 21:05 Bedside Glucose 123 195 128 149 Test 02/05/19 05:43 02/05/19 05:44 02/05/19 08:00 White Blood Count 24.2 #H Red Blood Count 4.83 Hemoglobin 13.7 Hematocrit 41.9 Mean Corpuscular 86.7 Volume Mean Corpuscular 28.4 L Hemoglobin Mean Corpuscular 32.7 Hemoglobin Concent Red Cell 12.7 Distribution Width Platelet Count 270 Mean Platelet Volume 11.3 H Immature 7.200 H Granulocytes % Neutrophils % Segmented 67 Neutrophils % (Manual) Band Neutrophils % 8 H (Manual) Lymphocytes % Lymphocytes % 13 L (Manual) Reactive Lymphocytes 3 H % (Manual) Monocytes % Monocytes % (Manual) 4 Eosinophils % Eosinophils % 1 (Manual) Basophils % Metamyelocytes % 2 H (manual) Myelocytes % 2 H (Manual) Nucleated Red Blood 1 H Cells % Immature 1.740 H Granulocytes # Neutrophils # Neutrophils # 16.7 H (Manual) Band Neutrophils # 1.9 H Lymphocytes (Manual) 3.1 H Lymphocytes # Reactive Lymphocytes 0.7 H # Monocytes # Monocytes # (Manual) 0.9 Eosinophils # Basophils # Metamyelocytes # 0.4 H Myelocytes # 0.4 H Nucleated Red Blood Cells # Platelet Estimate NORMAL Poikilocytosis 1+ Anisocytosis 1+ Phosphorus Level 3.8 Magnesium Level 2.6 H Sodium Level 139 Potassium Level 4.1 Chloride Level 104 Carbon Dioxide Level 27 Anion Gap 8 Blood Urea Nitrogen 23 H Creatinine 0.66 Est Glomerular > 60 Filtrat Rate mL/min Glucose Level 155 Calcium Level 8.4 Bedside Glucose 123 Subjective 24 Hr Interval Summary Constitutional: improved Exam/Review of Systems Exam Vitals Vital Signs Date Temp Pulse Resp B/P (MAP) Pulse Ox O2 O2 Flow FiO2 Time Delivery Rate 02/05/19 98.6 76 20 104/61 96 08:00 (75) 02/03/19 Room Air 14:00 Intake and Output 02/04/19 02/04/19 02/05/19 1515:00 23:00 07:00 IntakeIntake Total 400 ml 450 ml BalanceBalance 400 ml 450 ml Constitutional: alert, oriented Respiratory: clear to auscultation Cardiovascular: regular rate and rhythm Musculoskeletal: muscle weakness (left more than right) Results Results 24hrs Laboratory Tests Test 02/04/19 08:58 02/04/19 12:10 02/04/19 17:10 02/04/19 21:05 Bedside Glucose 123 195 128 149 Test 02/05/19 05:43 02/05/19 05:44 02/05/19 08:00 White Blood Count 24.2 #H Red Blood Count 4.83 Hemoglobin 13.7 Hematocrit 41.9 Mean Corpuscular 86.7 Volume Mean Corpuscular 28.4 L Hemoglobin Mean Corpuscular 32.7 Hemoglobin Concent Red Cell 12.7 Distribution Width Platelet Count 270 Mean Platelet Volume 11.3 H Immature 7.200 H Granulocytes % Neutrophils % Segmented 67 Neutrophils % (Manual) Band Neutrophils % 8 H (Manual) Lymphocytes % Lymphocytes % 13 L (Manual) Reactive Lymphocytes 3 H % (Manual) Monocytes % Monocytes % (Manual) 4 Eosinophils % Eosinophils % 1 (Manual) Basophils % Metamyelocytes % 2 H (manual) Myelocytes % 2 H (Manual) Nucleated Red Blood 1 H Cells % Immature 1.740 H Granulocytes # Neutrophils # Neutrophils # 16.7 H (Manual) Band Neutrophils # 1.9 H Lymphocytes (Manual) 3.1 H Lymphocytes # Reactive Lymphocytes 0.7 H # Monocytes # Monocytes # (Manual) 0.9 Eosinophils # Basophils # Metamyelocytes # 0.4 H Myelocytes # 0.4 H Nucleated Red Blood Cells # Platelet Estimate NORMAL Poikilocytosis 1+ Anisocytosis 1+ Phosphorus Level 3.8 Magnesium Level 2.6 H Sodium Level 139 Potassium Level 4.1 Chloride Level 104 Carbon Dioxide Level 27 Anion Gap 8 Blood Urea Nitrogen 23 H Creatinine 0.66 Est Glomerular > 60 Filtrat Rate mL/min Glucose Level 155 Calcium Level 8.4 Bedside Glucose 123 Medications Medication Current Medications Pantoprazole (Protonix Tab) 40 mg DAILY@06 PO Last administered on 02/05/19at 06:30; Admin Dose 40 MG; Start 01/31/19 at 06:00 Acetaminophen/ Hydrocodone Bitart ([place] (5/325)) 1 tab Q6H PRN PO MODERATE PAIN LEVEL 4-6 Last administered on 01/31/19at 20:37; Admin Dose 1 TAB; Start 01/31/19 at 09:30 Morphine Sulfate (morphine) 1 mg Q4H PRN IV SEVERE PAIN LEVEL 7-10; Start 01/31/19 at 10:00 Alprazolam (Xanax) 0.25 mg BID PO Last administered on 02/05/19at 08:11; Admin Dose 0.25 MG; Start 01/31/19 at 10:00 Methylprednisolone Sodium Succinate 1000 mg/Dextrose 50 ml @ 100 mls/hr DAILY IVPB Last administered on 02/05/19at 08:11; Admin Dose 100 MLS/HR; Start 01/31/19 at 14:30; Stop 02/05/19 at 14:29 Ergocalciferol (Drisdol) 50,000 unit Tu@09 PO Last administered on 02/02/19at 10:16; Admin Dose 50,000 UNIT; Start 02/02/19 at 09:00 Diagnostic Test (Pha) (Accu-Chek) 1 ea 02 XX ; Start 02/03/19 at 02:00 Insulin Aspart (Novolog Insulin Pen) NOVOLOG *MILD* ALGORITHM WITH MEALS BEDTIME SC Last administered on 02/04/19at 12:31; Admin Dose 2 UNIT; Start 02/02/19 at 18:05 Miscellaneous Information 1 ea NOTE XX ; Start 02/02/19 at 18:00 Glucose (Glutose) 15 gm Q15M PRN PO DECREASED GLUCOSE; Start 02/02/19 at 18:00 Glucose (Glutose) 22.5 gm Q15M PRN PO DECREASED GLUCOSE; Start 02/02/19 at 1 8:00 Dextrose (D50w Syringe) 25 ml Q15M PRN IV DECREASED GLUCOSE; Start 02/02/19 at 18:00 Dextrose (D50w Syringe) 50 ml Q15M PRN IV DECREASED GLUCOSE; Start 02/02/19 at 18:00 Glucagon (Glucagen) 1 mg Q15M PRN IM DECREASED GLUCOSE; Start 02/02/19 at 18:00 Glucose (Glutose) 15 gm Q15M PRN BUCCAL DECREASED GLUCOSE; Start 02/02/19 at 18:00 CLAUDE DIAMOND February 05, 2019 08:53
[2019-02-05 14:00] VITALS: BP 135/81; PULSE 84; RESP 20
--- NOTE | 2019-02-05 14:28 | CONS ---
Assessment/Plan Assessment/Plan Assessment/Plan (Recall) 28 yo F with known hx of MS who presents for evaluation of BLE numbness and weakness... for which neurology is consulted. The clinical picture is consistent w/ MS exacerbation. MRIs confirm active demyelination. P: Cont solumedrol to 1g IV daily for ~7 days PT/OT as necessary Cont other medical management per primary Will follow clinically Consultation Date/Type/Reason Admit Date/Time January 30, 2019 at 14:09 Type of Consult Neurology Requesting Provider: CLAUDE DIAMOND Date/Time of Note DATE: 02/05/19 TIME: 14:28 24 HR Interval Summary Free Text/Dictation Continues acute care. On day 6 of high dose steroids. Pt states that she's doing much better than yesterday, and that her L leg strength has significantly improved while her R leg is still catching up. She states that her sensation is back to normal. Exam/Review of Systems Exam Vitals Vital Signs Date Temp Pulse Resp B/P (MAP) Pulse Ox O2 O2 Flow FiO2 Time Delivery Rate 02/05/19 98.6 76 20 104/61 96 08:00 (75) 02/03/19 Room Air 14:00 Intake and Output 02/04/19 02/04/19 02/05/19 1515:00 23:00 07:00 IntakeIntake Total 400 ml 450 ml BalanceBalance 400 ml 450 ml Exam PE: Gen Appearance: No Apparent Distress HEENT: Normocephalic Cardiovascular: Regular rate Lungs: Clear bilaterally Abdomen: Soft Extremities: Dry NE: The patient was alert and oriented.. Language was normal. Fund of knowledge was normal. Pupils were equal and reactive to light. There was no afferent pupillary defect. Visual santana were normal. Funduscopic examination was limited. Extra-ocular movements were full. Ptosis was absent. There was no nystagmus. Facial sensation was normal. Face was symmetric with normal strength. Hearing was intact. Palate movements were normal. Neck strength was normal. There was normal tongue bulk and speed of movement. Tone was normal. Muscle bulk was normal. I did not see fasciculations. Arms were strong to confrontation; legs were moderately weak to confrontation (L>R) Vibration sensation was intact. Temperature and pinprick sensation was normal. Rapid alternating movements were normal. There was no dysmetria. There was no intention tremor. Gait was deferred due to bedrest. Arm and leg reflexes were 2+ and symmetric. Diana's sign was absent. Plantar responses were flexor. Results Result Diagram: 02/05/19 0543 02/05/19 0544 Results 24hrs Laboratory Tests Test 02/04/19 17:10 02/04/19 21:05 02/05/19 05:43 02/05/19 05:44 Bedside Glucose 128 149 White Blood Count 24.2 #H Red Blood Count 4.83 Hemoglobin 13.7 Hematocrit 41.9 Mean Corpuscular 86.7 Volume Mean Corpuscular 28.4 L Hemoglobin Mean Corpuscular 32.7 Hemoglobin Concent Red Cell 12.7 Distribution Width Platelet Count 270 Mean Platelet Volume 11.3 H Immature 7.200 H Granulocytes % Neutrophils % Segmented 67 Neutrophils % (Manual) Band Neutrophils % 8 H (Manual) Lymphocytes % Lymphocytes % 13 L (Manual) Reactive Lymphocytes 3 H % (Manual) Monocytes % Monocytes % (Manual) 4 Eosinophils % Eosinophils % 1 (Manual) Basophils % Metamyelocytes % 2 H (manual) Myelocytes % 2 H (Manual) Nucleated Red Blood 1 H Cells % Immature 1.740 H Granulocytes # Neutrophils # Neutrophils # 16.7 H (Manual) Band Neutrophils # 1.9 H Lymphocytes (Manual) 3.1 H Lymphocytes # Reactive Lymphocytes 0.7 H # Monocytes # Monocytes # (Manual) 0.9 Eosinophils # Basophils # Metamyelocytes # 0.4 H Myelocytes # 0.4 H Nucleated Red Blood Cells # Platelet Estimate NORMAL Poikilocytosis 1+ Anisocytosis 1+ Phosphorus Level 3.8 Magnesium Level 2.6 H Sodium Level 139 Potassium Level 4.1 Chloride Level 104 Carbon Dioxide Level 27 Anion Gap 8 Blood Urea Nitrogen 23 H Creatinine 0.66 Est Glomerular > 60 Filtrat Rate mL/min Glucose Level 155 Calcium Level 8.4 Test 02/05/19 08:00 02/05/19 11:49 Bedside Glucose 123 145 Medications Medication Current Medications Pantoprazole (Protonix Tab) 40 mg DAILY@06 PO Last administered on 02/05/19at 06:30; Admin Dose 40 MG; Start 01/31/19 at 06:00 Acetaminophen/ Hydrocodone Bitart ([place] (5/325)) 1 tab Q6H PRN PO MODERATE PAIN LEVEL 4-6 Last administered on 01/31/19at 20:37; Admin Dose 1 TAB; Start 01/31/19 at 09:30 Morphine Sulfate (morphine) 1 mg Q4H PRN IV SEVERE PAIN LEVEL 7-10; Start 01/31/19 at 10:00 Alprazolam (Xanax) 0.25 mg BID PO Last administered on 02/05/19at 08:11; Admin Dose 0.25 MG; Start 01/31/19 at 10:00 Methylprednisolone Sodium Succinate 1000 mg/Dextrose 50 ml @ 100 mls/hr DAILY IVPB Last administered on 02/05/19at 08:11; Admin Dose 100 MLS/HR; Start 01/31/19 at 14:30; Stop 02/06/19 at 09:29 Ergocalciferol (Drisdol) 50,000 unit Tu@09 PO Last administered on 02/02/19at 10:16; Admin Dose 50,000 UNIT; Start 02/02/19 at 09:00 Diagnostic Test (Pha) (Accu-Chek) 1 ea 02 XX ; Start 02/03/19 at 02:00 Insulin Aspart (Novolog Insulin Pen) NOVOLOG *MILD* ALGORITHM WITH MEALS BEDTIME SC Last administered on 02/05/19at 11:52; Admin Dose 1 UNIT; Start 02/02/19 at 18:05 Miscellaneous Information 1 ea NOTE XX ; Start 02/02/19 at 18:00 Glucose (Glutose) 15 gm Q15M PRN PO DECREASED GLUCOSE; Start 02/02/19 at 18:00 Glucose (Glutose) 22.5 gm Q15M PRN PO DECREASED GLUCOSE; Start 02/02/19 at 18:00 Dextrose (D50w Syringe) 25 ml Q15M PRN IV DECREASED GLUCOSE; Start 02/02/19 at 18:00 Dextrose (D50w Syringe) 50 ml Q15M PRN IV DECREASED GLUCOSE; Start 02/02/19 at 18:00 Glucagon (Glucagen) 1 mg Q15M PRN IM DECREASED GLUCOSE; Start 02/02/19 at 18:00 Glucose (Glutose) 15 gm Q15M PRN BUCCAL DECREASED GLUCOSE; Start 02/02/19 at 18:00 JOEL BRANTLEY NP February 05, 2019 14:28
[2019-02-05 20:00] VITALS: BP 119/62; PULSE 78; RESP 19
[2019-02-06] MEDS: ACCU-CHEK XX SCH (01:42)
[2019-02-06 02:03] VITALS: BP 110/60; PULSE 76; RESP 18
[2019-02-06] MEDS: PANTOPRAZOLE (EC) 40 MG TAB PO SCH (06:15)
[2019-02-06 08:00] VITALS: BP 100/57; PULSE 63; RESP 16
[2019-02-06] MEDS: INSULIN ASPART [NOVOLOG] 3 ML PEN SC SCH ×2 (08:00→12:00)
[2019-02-06 08:03] VITALS: BP 100/57; PULSE 63; RESP 16
[2019-02-06] MEDS ORDERED: METHYLPRED. NA SUCC 1,000 MG in DEXTROSE 5% 50 ML IVPB ONE (09:00)
--- NOTE | 2019-02-06 09:01 | PDOCDIS ---
Discharge Instructions DIAGNOSIS Discharge Diagnosis multiple sclerosis exacerbation CONDITION [id number] Patient Condition: [id number] Stable HOME CARE INSTRUCTIONS: [id number] Diet Instructions: [id number] Regular ACTIVITY: [id number] Activity Restrictions: [id number] Slowly Increase Activity Rest between Activity Avoid heavy lifting Do not operate Power Tool FOLLOW UP/APPOINTMENTS Follow-up Plan PCP [address] Guevara 1-2 weeks CLAUDE DIAMOND Feb 06, 2019 09:01
[2019-02-06] MEDS ORDERED: ERGO500013 PO (09:02)
--- NOTE | 2019-02-06 09:04 | DS ---
Date/Time of Note Date/Time of Note DATE: 02/06/19 TIME: 09:03 Discharge Summary Admission/Discharge Info Admit Date/Time January 30, 2019 at 14:09 Discharge Date/Time Discharge Diagnosis multiple sclerosis exacerbation Patient Condition: Stable Consults Neurology dr Lyman Hospital Course The patient with a history of multiple sclerosis, has not seen a neurologist or taken any medication, who presents with lower extremity weakness and possibly a flareup of the multiple sclerosis. The patient had a brain CT scan done which shows no acute intracranial pathology. MRI brain is more sensitive. The patient is admitted for further management. PAST MEDICAL HISTORY: Multiple sclerosis. ALLERGY HISTORY: NEGATIVE. FAMILY HISTORY: Negative. SOCIAL HISTORY: Negative. MEDICATIONS AT HOME: Listed as: 1. Copaxone, but the patient has not taken this. 2. Tramadol. 1. Multiple sclerosis exacerbation. CT scan brain showed: No acute intracranial pathology. 2.Lower extremity numbness 3. Obesity 4. Anxiety 5. Vit D deficiency 6. low TSH 7/ Leucocytosis. Neurology dr Lyman consulted pt. and evaluated her BLE numbness and weakness. She reported that clinical picture is most concerning for an MS exacerbation. CTH is unrevealing. There were MRI brain/C-spine/T-spine c/ c/o contrast to further evaluate for active demyelination, studies were consistent with MS exacerbation. Pt was given course of solumedrol to 1g IV daily for 7 days, there was a clinical improvement. Pt was started to walk with physical therapy with daily improvement. we followed her team recommendation. We requested case manage to arrange for home health PT, we asked insurance to find outpatient neurology with whom pt can follow up, it is dr Dr Guevara . She was given walker for stability. We started her on ergocalciferol supplement weekly. Home health is arranged by shoe caser. Home Meds Active Scripts Ergocalciferol (Vitamin D2) (VITAMIN D2) 50,000 Unit Capsule, 42658 UNIT PO Tu@09 for 90 Days, CAP Prov:CLAUDE DIAMOND 02/06/19 Discontinued Scripts Ondansetron (Ondansetron Odt) 4 Mg Tab.rapdis, 4 MG PO Q6H PRN for NAUSEA AND/OR VOMITING, #20 TAB Prov:HUGO IGNACIO PA-C 07/12/18 Magaldrate/Simethicone* (Mylanta*) 355 Ml Susp, 30 ML PO QID PRN for GASTROINTESTINAL UPSET, #1 BOTTLE Prov:HUGO IGNACIO PA-C 07/12/18 Prednisone* (Prednisone*) 20 Mg Tab, 60 MG PO DAILY for 4 Days, TAB Prov:NAILAJACQUI PRICE PA-C 07/11/17 Guaifenesin/Codeine Phosphate (CHERATUSSIN AC SYRUP) 118 Ml Liquid, 5 ML PO Q4H PRN for COUGH, #118 ML Prov:ALEJANDRO RAWLS NP 04/06/17 Follow-up Plan PCP [address] Guevara 1-2 weeks Primary Care Provider Not On Staff Doctor Time spent on discharge: < 30 minutes Pending Labs Laboratory Tests Test 02/05/19 11:49 02/05/19 16:56 02/05/19 21:54 02/06/19 01:38 Bedside 145 159 196 145 Glucose mg/dL (70-220) mg/dL (70-220) mg/dL (70-220) mg/dL (70-220) Test 02/06/19 05:37 02/06/19 08:20 White Blood 25.5 Count 10^3/ul (4.8-10 .8) Red Blood 4.70 Count 10^6/ul (4.20-5 .40) Hemoglobin 13.5 g/dl (12.0-16.0 ) Hematocrit 40.6 % (37.0-47.0) Mean 86.4 Corpuscular fl (82.0-101.0) Volume Mean 28.7 Corpuscular pg (29.0-33.0) Hemoglobin Mean 33.3 Corpuscular g/dl (32.0-37.0 Hemoglobin Conc ) ent Red Cell 12.8 Distribution % (11.5-14.5) Width Platelet Count 258 10^3/UL (140-41 5) Mean Platelet 10.8 Volume fl (7.4-10.4) Immature 8.400 Granulocytes % % (0.001-0.429) Neutrophils % % (39.0-77.0) Segmented 80 % (39-77) Neutrophils % (Manual) Band 2 % (0-4) Neutrophils % (Manual) Lymphocytes % % (15.0-51.0) Lymphocytes % 13 % (15-51) (Manual) Monocytes % % (0.0-11.0) Monocytes % 4 % (0-11) (Manual) Eosinophils % % (0.0-7.0) Basophils % % (0.0-2.0) Metamyelocytes 1 % (0-0) % (manual) Nucleated Red 0.1 Blood Cells % /100WBC (0.0-0. 0) Immature 2.140 Granulocytes # 10^3/ul (0.0-0. 031) Neutrophils # 10^3/ul (1.6-7. 5) Neutrophils # 20.5 (Manual) 10^3/ul (1.6-7. 5) Band 0.5 Neutrophils # 10^3/ul (0.0-0. 6) Lymphocytes 3.3 (Manual) 10^3/ul (0.8-2. 9) Lymphocytes # 10^3/ul (0.8-2. 9) Monocytes # 10^3/ul (0.3-0. 9) Monocytes # 1.0 (Manual) 10^3/ul (0.3-0. 9) Eosinophils # 10^3/ul (0.0-0. 5) Basophils # 10^3/ul (0.0-0. 1) Metamyelocytes 0.2 # 10^3/ul (0.0-0. 0) Nucleated Red 10^3/ul (0.0-0. Blood Cells # 0) Platelet NORMAL Estimate Giant Platelets 1 % (0-0) Polychromasia 1+ (0-0) Rouleau 1+ (0-0) Sodium Level 137 mmol/L (135-144 ) Potassium 4.2 Level mmol/L (3.5-5.1 ) Chloride Level 104 mmol/L (97-110) Carbon Dioxide 26 Level mmol/L (21-31) Anion Gap 7 (5-13) Blood Urea 19 mg/dl (7-20) Nitrogen Creatinine 0.49 mg/dl (0.44-1.0 0) Est Glomerular > 60 Filtrat mL/min (>60) Rate mL/min Glucose Level 152 mg/dl (70-220) Calcium Level 8.0 mg/dl (8.4-10.2 ) Bedside 122 Glucose mg/dL (70-220) CLAUDE DIAMOND Feb 06, 2019 09:03
[2019-02-06] MEDS: ALPRAZOLAM 0.25 MG TAB PO SCH (09:30)
[2019-02-06] MEDS: METHYLPRED. NA SUCC 1,000 MG in DEXTROSE 5% 50 ML IVPB SCH (09:35)
[2019-02-06 14:23] VITALS: BP 105/60; PULSE 70; RESP 16
== END 2019-02-06 16:18 | disposition home health service (06) | DRG 60 ==
LOC: FTE 11:39 → PP2 14:09
PROVIDERS: ADMIT Internal Medicine Nephrology; ATTEND Internal Medicine Nephrology
DX: G35 Multiple sclerosis (principal); E66.9 Obesity, unspecified; F41.9 Anxiety disorder, unspecified; E55.9 Vitamin D deficiency, unspecified; R94.6 Abnormal results of thyroid function studies; Z68.35 Body mass index [BMI] 35.0-35.9, adult
CPT/HCPCS: 36415; 70450; 70553; 72156; 72157; 72158; 76536; 80048; 80053; 81001; 81025; 82550; 82652; 82962; 83036; 83735; 84100; 84443; 85025; 97110; 97116; 97162; 97530; J1815; J2270; J2930

== ENCOUNTER 2019-04-06 15:41 | Emergency (ER) | payer OTHER ==
[~2019-04-06] VITALS: Ht 167.6 cm; Wt 92.9 kg
[~2019-04-06 15:41] MED LIST changes: +ERGO500013 PO; -GUAI118L22 PO; -MAG-19 PO; -ONDA4TAB14 PO; -PRED20TA PO
[2019-04-06 15:46] VITALS: Ht 167.6 cm; Wt 92.9 kg
[2019-04-06] MEDS ORDERED: METHYLPREDNISOLONE 125 MG INJ IM ONE (16:30)
[2019-04-06 17:03] VITALS: BP 135/78; PULSE 77; RESP 18
--- NOTE | 2019-04-13 01:49 | ERD ---
ER Documentation Chief Complaint Chief Complaint pain in spine d/t MS, sent for iv solumedrol by PMD HPI 29-year-old female with past medical history of multiple sclerosis presents to the emergency department complaining of weakness on the left side of her body. She states this is due to her multiple sclerosis and her neurologist sent her here for Solu-Medrol injection. Her condition is improved significantly in the past with steroid medication. She denies any nausea, vomiting, diarrhea, weakness on one side of the body, abdominal pain, fevers, chills, or other s ymptoms at this time. She has tried no medication for relief of symptoms yet today. ROS All systems reviewed and are negative except as per history of present illness. 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 Neck: Full range of motion. No meningismus. Resp: Clear to auscultation bilaterally Cardio: Regular rate and rhythm, no murmurs Abd: Soft, non tender, non distended. Normal bowel sounds Skin: No petechiae or rashes Back: No midline or flank tenderness Ext: No cyanosis, or edema. Strength and sensation intact to the bilateral lower extremities. Neuro: M/S: Alert and oriented Face: EOMI, face and pharynx with normal sensation and function Motor: Normal strength throughout Sensation: Normal sensation throughout Speech: Normal Cerebel: Normal coordination Normal gait Normal finger to nose Psych: Normal Mood and Affect Results 24 hrs Laboratory Tests Test 04/06/19 16:23 POC Beta HCG, Qualitative NEGATIVE Current Medications Medications Dose Sig/Quin Start Time Status Last (Trade) Ordered Route PRN Stop Time Admin Dose Reason Admin 125 mg ONCE ONCE 04/06/19 DC 04/06/19 Methylprednis IM 16:30 16:20 olone Sodium 04/06/19 16:31 Succinate (Solu-Medrol) Procedures/MDM 29-year-old female presenting to the emergency department with signs and symptoms most consistent with multiple sclerosis exacerbation. I did consult the patient's neurologist who recommended Solu-Medrol. Patient was administered IM Solu-Medrol. She was improved prior to discharge. No evidence to suggest CVA, TIA, intracranial mass or hemorrhage, or other emergent pathology. Patient will be discharged home in stable condition for further outpatient management. She was advised to follow-up with her neurologist within the next 24 to 48 hours and return here immediately for any new, worsening, or concerning symptoms per the patient was in agreement with the diagnosis and the plan and her questions and concerns were addressed prior to discharge. Departure Diagnosis: Primary Impression: Multiple sclerosis exacerbation Condition: Fair Patient Instructions: Understanding Multiple Sclerosis (MS) Referrals: [facility] YOU HAVE RECEIVED A MEDICAL SCREENING EXAM AND THE RESULTS INDICATE THAT YOU DO NOT HAVE A CONDITION THAT REQUIRES URGENT TREATMENT IN THE EMERGENCY DEPARTMENT. FURTHER EVALUATION AND TREATMENT OF YOUR CONDITION CAN WAIT UNTIL YOU ARE SEEN IN YOUR DOCTORS OFFICE WITHIN THE NEXT 1-2 DAYS. IT IS YOUR RESPONSIBILITY TO MAKE AN APPOINTMENT FOR FOLOW-UP CARE. IF YOU HAVE A PRIMARY DOCTOR --you should call your primary doctor and schedule an appointment IF YOU DO NOT HAVE A PRIMARY DOCTOR YOU CAN CALL OUR PHYSICIAN REFERRAL HOTLINE AT IF YOU CAN NOT AFFORD TO SEE A PHYSICIAN YOU CAN CHOSE FROM THE FOLLOWING [facility] [address]. [facility] [address] [facility] [facility] [address] [facility] [address] [facility] [address] [facility]. [facility]. [address] Additional Instructions: Call your primary care doctor TOMORROW for an appointment during the next 1-2 days.See the doctor sooner or return here if your condition worsens before your appointment time. WICHO MEYERS PA-C Apr 13, 2019 01:49
== END 2019-04-06 17:04 | disposition home or self-care (01) ==
LOC: FTE 15:41
DX: G35 Multiple sclerosis (principal)
CPT/HCPCS: 81025; 96372; J2930; Z7502